=== PATIENT | female | born 1960 | race African-American/Black ===

== ENCOUNTER 2017-03-12 15:38 | Inpatient (IN) | payer MEDICARE, MEDICAID ==
[~2017-03-12] VITALS: Ht 162.6 cm; Wt 75.3 kg
[2017-03-12] MEDS ORDERED: SODIUM CHLORIDE 0.9% 1000ML BAG (SEPSIS BOLUS) IV ONE (16:45)
[2017-03-12 17:10] LABS: BASOPHILS % 0.3 % (0.0-2.0); EOSINOPHILS % 1.4 % (0.0-5.0); HEMATOCRIT. 34.2 % (36.0-48.0); LYMPHOCYTES % 26.8 % (20.0-50.0); MEAN CORPUSCULAR HEMOGLOBIN 27.8 pg (28.0-32.0); MEAN CORPUSCULAR VOLUME 86.2 fL (81.0-99.0); MEAN PLATELET VOLUME 8.5 fl (7.4-10.4); MONOCYTES % 5.9 % (2.0-8.0); NEUTROPHILS % 65.6 % (40.0-76.0); PLATELET 256 x1000/uL (130-400); RED BLOOD CELL COUNT 3.97 mill/uL (4.2-5.4); RED CELL DISTRIBUTION WIDTH 15.9 % (11.6-14.6)
[2017-03-12 17:13] LABS: CLARITY URINE TURBID (CLEAR); COLOR URINE YELLOW (YELLOW); GLUCOSE URINE TRACE (NEGATIVE); KETONES URINE NEGATIVE (NEGATIVE); LEUKOCYTE ESTERASE URINE 2+ (NEGATIVE); NITRITE URINE NEGATIVE (NEGATIVE); OCCULT BLOOD URINE 3+ (NEGATIVE); PH URINE 5.5 (4.5-8.0); PROTEIN URINE 4+ (NEGATIVE); SPECIFIC GRAVITY URINE 1.021 (1.005-1.030)
[2017-03-12 17:19] LABS: CHLORIDE 105 mEq/L (98-107)
[2017-03-12 17:21] LABS: CARBON DIOXIDE 29 mEq/L (21-32)
[2017-03-12] MEDS ORDERED: CEFTRIAXONE 2 G PREMIX 50 ML IV ONE (19:45)
[2017-03-12] MEDS ORDERED: VANCOMYCIN 1 G PREMIX 200 ML IV SCH (20:00)
[2017-03-12] MEDS ORDERED: ONDANSETRON HCL 4MG/2ML VIAL IV PRN (20:15)
[2017-03-12] MEDS ORDERED: VANCOMYCIN 1500MG in DEXTROSE 5% WATER 250ML IV NR (20:30)
[2017-03-12] MEDS ORDERED: CEFTRIAXONE 1 G PREMIX 50 ML IV NR (21:00)
[2017-03-12] MEDS: CLONIDINE 0.1MG TABLET PO PRN (21:13)
[2017-03-12] MEDS ORDERED: MORPHINE SULFATE 2 MG/ML CPJ (NOT FOR IM USE) IV ONE (21:30)
[2017-03-12] MEDS ORDERED: ONDANSETRON HCL 4MG/2ML VIAL IV ONE (21:30)
[2017-03-12 22:29] VITALS: BP 140/72
[2017-03-12 22:30] VITALS: BP 140/72
[2017-03-12 23:00] VITALS: BP 165/100
[2017-03-12] MEDS ORDERED: LEVVL SUBCUT (23:34)
[2017-03-12] MEDS ORDERED: ATOR10TA69 PO (23:36)
[2017-03-12] MEDS ORDERED: LEVE250T2 PO (23:38)
[2017-03-12] MEDS ORDERED: CLON0.1T PO (23:43)
[2017-03-12] MEDS ORDERED: DIPH25CA83 PO (23:45)
[2017-03-12] MEDS ORDERED: CLONIDINE 0.1MG TABLET PO SCH (23:45)
[2017-03-12] MEDS ORDERED: DIPHENHYDRAMINE 25MG CAPSULE PO PRN (23:45)
[2017-03-12] MEDS: BLOOD SUGAR DIAGNOSTIC STRIP TEST SCH (23:51)
[2017-03-13] VITALS (21 sets, daily range): BP systolic 121–188; BP diastolic 60–100
[2017-03-13] MEDS ORDERED: DEXTROSE 50% WATER 50ML SYRINGE IV PRN
[2017-03-13] MEDS ORDERED: CEFTRIAXONE 1 G PREMIX 50 ML IV SCH
[2017-03-13] MEDS ORDERED: GABA-531 PO (00:03)
[2017-03-13] MEDS ORDERED: VIGAMX EACHEYE (00:05)
[2017-03-13] MEDS ORDERED: HYDR453.3 TP (00:11)
[2017-03-13] MEDS ORDERED: HYDROCORTISONE 2.5% CREAM 20GM TOP PRN (00:15)
[2017-03-13] MEDS ORDERED: MEDICATION NOT ON FORMULARY EA (Moxifloxacin Hcl (Vigamox) 1 DROP) EACHEYE SCH (00:15)
[2017-03-13] MEDS ORDERED: METO25TA6 PO (00:21)
[2017-03-13] MEDS: ACETAMINOPHEN 325MG TABLET PO PRN ×2 (00:29→12:31)
[2017-03-13] MEDS: DIPHENHYDRAMINE 50MG CAPSULE PO PRN ×2 (00:30→12:31)
[2017-03-13] MEDS: INSULIN LISPRO 100 UNITS/ML SUBCUT SCH ×5 (00:45→21:46)
[2017-03-13] MEDS: METOPROLOL TARTRATE 25MG TABLET PO SCH ×2 (00:46→08:20)
[2017-03-13] MEDS: GABAPENTIN 300MG CAPSULE PO SCH ×4 (01:07→17:27)
[2017-03-13] MEDS ORDERED: DOCU-150 PO (03:57)
[2017-03-13] MEDS ORDERED: ESOM40CA PO (03:59)
[2017-03-13] MEDS ORDERED: VITAMIN C PO (04:02)
[2017-03-13] MEDS ORDERED: NEPVIT PO (04:03)
[2017-03-13] MEDS ORDERED: NIFE90TA2 PO (04:07)
[2017-03-13] MEDS ORDERED: LACT10SO6 PO (04:08)
[2017-03-13] MEDS ORDERED: GLIP5TAB12 PO (04:10)
[2017-03-13] MEDS ORDERED: DEXT15DR5 EACHEYE (04:13)
[2017-03-13] MEDS ORDERED: MEDICATION NOT ON FORMULARY EA (Dextran 70/Hypromellose (Artificial Tears Eye Drops) 1 D EACHEYE PRN (04:15)
[2017-03-13] MEDS ORDERED: BISACODYL 5MG TABLET PO PRN (04:15)
[2017-03-13] MEDS ORDERED: BISA-81 PO (04:16)
[2017-03-13] MEDS ORDERED: POLYVINYL ALCOHOL OPHTH DROPS 15ML EACHEYE PRN (04:30)
[2017-03-13] MEDS: BLOOD SUGAR DIAGNOSTIC STRIP TEST SCH ×4 (06:16→21:36)
[2017-03-13] MEDS: PANTOPRAZOLE 40MG DR TABLET PO SCH ×2 (06:18→17:27)
[2017-03-13] MEDS ORDERED: MEDICATION NOT ON FORMULARY EA (Esomeprazole Mag Trihydrate (Nexium) 40 MG) PO SCH (06:50)
[2017-03-13 07:55] LABS: BASOPHILS % 0.5 % (0.0-2.0); EOSINOPHILS % 0.9 % (0.0-5.0); HEMATOCRIT. 36.2 % (36.0-48.0); HEMOGLOBIN. 11.6 g/dL (12.0-16.0); LYMPHOCYTES % 24.2 % (20.0-50.0); MEAN CORPUSCULAR HEMOGLOBIN 27.5 pg (28.0-32.0); MEAN CORPUSCULAR VOLUME 86.2 fL (81.0-99.0); MONOCYTES % 5.6 % (2.0-8.0); NEUTROPHILS % 68.8 % (40.0-76.0); PLATELET 248 x1000/uL (130-400)
[2017-03-13 08:09] LABS: CARBON DIOXIDE 31 mEq/L (21-32); CHLORIDE 103 mEq/L (98-107)
[2017-03-13] MEDS: FOLIC ACID/VITAMIN B COMP W-C TABLET PO SCH (08:19)
[2017-03-13] MEDS: LEVETIRACETAM 250MG TABLET PO SCH ×2 (08:19→20:20)
[2017-03-13] MEDS: ASCORBIC ACID 500 MG TABLET PO SCH (08:19)
[2017-03-13] MEDS: LACTULOSE 20G/30ML UDC PO SCH (08:19)
[2017-03-13] MEDS: NIFEDIPINE XL 90MG TAB PO SCH (08:20)
[2017-03-13] MEDS: DOCUSATE SODIUM 250MG CAPSULE PO SCH ×2 (08:20→17:27)
[2017-03-13] MEDS: GLIPIZIDE 5MG TABLET PO SCH (08:20)
[2017-03-13] MEDS ORDERED: VITAMIN C 500 MG PO SCH (09:00)
[2017-03-13] MEDS ORDERED: LACTULOSE 20 GM PO SCH (09:00)
[2017-03-13] MEDS: ENOXAPARIN 40MG/0.4ML SYR SUBCUT SCH (10:12)
[2017-03-13] MEDS: INSULIN DETEMIR UD 100 UNITS/ML SYR SUBCUT SCH ×2 (10:13→21:49)
[2017-03-13] MEDS: CIPROFLOXACIN 0.3% OPHTH SOLN 2.5ML EACHEYE SCH ×4 (10:13→20:30)
[2017-03-13 11:52] LABS: *AMPHETAMINES SCREEN URINE NEGATIVE (NEGATIVE); *BARBITURATES SCREEN URINE NEGATIVE (NEGATIVE); *BENZODIAZEPINES SCREEN URINE NEGATIVE (NEGATIVE); *COCAINE SCREEN URINE NEGATIVE (NEGATIVE); CANNABINOID URINE SCREEN NEGATIVE (NEGATIVE); METHADONE URINE SCREEN NEGATIVE (NEGATIVE); OPIATES URINE SCREEN NEGATIVE (NEGATIVE); PHENCYCLIDINE URINE SCREEN NEGATIVE (NEGATIVE)
[2017-03-13] MEDS ORDERED: CEFTRIAXONE 1 G PREMIX 50 ML IV ONE (16:00)
[2017-03-13] MEDS: VANCOMYCIN 1 G PREMIX 200 ML IV SCH (20:17)
[2017-03-13] MEDS: ATORVASTATIN CALCIUM 10MG TABLET PO SCH (20:21)
[2017-03-14] VITALS (12 sets, daily range): BP systolic 125–171; BP diastolic 73–90
[2017-03-14] MEDS ORDERED: CEFTRIAXONE 1 G PREMIX 50 ML IV SCH
[2017-03-14] MEDS: CLONIDINE 0.1MG TABLET PO PRN (05:14)
[2017-03-14] MEDS: BLOOD SUGAR DIAGNOSTIC STRIP TEST SCH ×4 (05:45→21:37)
[2017-03-14] MEDS: PANTOPRAZOLE 40MG DR TABLET PO SCH (06:16)
[2017-03-14] MEDS: ACETAMINOPHEN 325MG TABLET PO PRN ×2 (07:27→21:52)
[2017-03-14] MEDS: INSULIN LISPRO 100 UNITS/ML SUBCUT SCH ×4 (07:28→21:00)
[2017-03-14] MEDS: GLIPIZIDE 5MG TABLET PO SCH (07:43)
[2017-03-14] MEDS: LACTULOSE 20G/30ML UDC PO SCH (08:58)
[2017-03-14] MEDS: ASCORBIC ACID 500 MG TABLET PO SCH (08:59)
[2017-03-14] MEDS: CIPROFLOXACIN 0.3% OPHTH SOLN 2.5ML EACHEYE SCH ×4 (09:08→21:50)
[2017-03-14] MEDS: NIFEDIPINE XL 90MG TAB PO SCH (09:09)
[2017-03-14] MEDS: DOCUSATE SODIUM 250MG CAPSULE PO SCH ×2 (09:09→16:09)
[2017-03-14] MEDS: LEVETIRACETAM 250MG TABLET PO SCH ×2 (09:09→21:50)
[2017-03-14] MEDS: GABAPENTIN 300MG CAPSULE PO SCH ×3 (09:09→16:18)
[2017-03-14] MEDS: FOLIC ACID/VITAMIN B COMP W-C TABLET PO SCH (09:09)
[2017-03-14] MEDS: METOPROLOL TARTRATE 25MG TABLET PO SCH ×2 (09:09→21:52)
[2017-03-14 10:20] LABS: BASOPHILS % 0.2 % (0.0-2.0); EOSINOPHILS % 1.5 % (0.0-5.0); HEMATOCRIT. 35.4 % (36.0-48.0); HEMOGLOBIN. 11.1 g/dL (12.0-16.0); LYMPHOCYTES % 28.1 % (20.0-50.0); MEAN CORPUSCULAR VOLUME 85.9 fL (81.0-99.0); MEAN PLATELET VOLUME 7.9 fl (7.4-10.4); MONOCYTES % 5.9 % (2.0-8.0); NEUTROPHILS % 64.3 % (40.0-76.0); PLATELET 243 x1000/uL (130-400); RED BLOOD CELL COUNT 4.12 mill/uL (4.2-5.4); RED CELL DISTRIBUTION WIDTH 16.1 % (11.6-14.6)
[2017-03-14] MEDS: ENOXAPARIN 40MG/0.4ML SYR SUBCUT SCH (10:34)
[2017-03-14] MEDS: INSULIN DETEMIR UD 100 UNITS/ML SYR SUBCUT SCH ×2 (10:35→21:47)
[2017-03-14] MEDS: DIPHENHYDRAMINE 50MG CAPSULE PO PRN ×2 (14:31→21:52)
[2017-03-14] MEDS: CEFEPIME 2,000 MG in DEXT 5% WATER 100 ML IV SCH (16:09)
[2017-03-14] MEDS: VANCOMYCIN 1 G PREMIX 200 ML IV SCH (21:50)
[2017-03-14] MEDS: ATORVASTATIN CALCIUM 10MG TABLET PO SCH (21:50)
[2017-03-15] VITALS (16 sets, daily range): BP systolic 124–200; BP diastolic 41–98
[2017-03-15] MEDS: ACETAMINOPHEN 325MG TABLET PO PRN ×2 (01:23→20:22)
[2017-03-15] MEDS: BLOOD SUGAR DIAGNOSTIC STRIP TEST SCH ×4 (05:44→21:00)
[2017-03-15 06:19] LABS: BASOPHILS % 0.1 % (0.0-2.0); EOSINOPHILS % 1.4 % (0.0-5.0); HEMOGLOBIN. 11.7 g/dL (12.0-16.0); LYMPHOCYTES % 23.9 % (20.0-50.0); MEAN CORPUSCULAR HEMOGLOBIN 27.8 pg (28.0-32.0); MEAN PLATELET VOLUME 8.1 fl (7.4-10.4); MONOCYTES % 4.8 % (2.0-8.0); NEUTROPHILS % 69.8 % (40.0-76.0); PLATELET 264 x1000/uL (130-400); RED BLOOD CELL COUNT 4.19 mill/uL (4.2-5.4); RED CELL DISTRIBUTION WIDTH 15.6 % (11.6-14.6)
[2017-03-15 06:59] LABS: PHOSPHORUS 3.7 mg/dL (2.5-4.9)
[2017-03-15] MEDS: LACTULOSE 20G/30ML UDC PO SCH (08:11)
[2017-03-15] MEDS: CIPROFLOXACIN 0.3% OPHTH SOLN 2.5ML EACHEYE SCH ×2 (08:11→12:00)
[2017-03-15] MEDS: ASCORBIC ACID 500 MG TABLET PO SCH (08:11)
[2017-03-15] MEDS: INSULIN LISPRO 100 UNITS/ML SUBCUT SCH ×4 (08:11→22:03)
[2017-03-15] MEDS: GABAPENTIN 300MG CAPSULE PO SCH ×3 (08:12→17:20)
[2017-03-15] MEDS: METOPROLOL TARTRATE 25MG TABLET PO SCH ×2 (08:12→20:22)
[2017-03-15] MEDS: DOCUSATE SODIUM 250MG CAPSULE PO SCH ×2 (08:12→17:20)
[2017-03-15] MEDS: FOLIC ACID/VITAMIN B COMP W-C TABLET PO SCH (08:12)
[2017-03-15] MEDS: LEVETIRACETAM 250MG TABLET PO SCH ×2 (08:12→20:22)
[2017-03-15] MEDS: FAMOTIDINE 20MG TABLET PO SCH (08:13)
[2017-03-15] MEDS: GLIPIZIDE 5MG TABLET PO SCH (08:13)
[2017-03-15] MEDS: NIFEDIPINE XL 90MG TAB PO SCH (08:13)
[2017-03-15] MEDS: INSULIN DETEMIR UD 100 UNITS/ML SYR SUBCUT SCH ×2 (09:19→22:04)
[2017-03-15] MEDS: DIPHENHYDRAMINE 50MG CAPSULE PO PRN (09:20)
[2017-03-15] MEDS: ENOXAPARIN 40MG/0.4ML SYR SUBCUT SCH (09:20)
[2017-03-15] MEDS: CLONIDINE 0.1MG TABLET PO PRN (12:05)
[2017-03-15] MEDS: HYDRALAZINE HCL 25MG TABLET PO SCH ×2 (14:49→20:21)
[2017-03-15] MEDS: CEFEPIME 2,000 MG in DEXT 5% WATER 100 ML IV SCH (15:31)
[2017-03-15] MEDS ORDERED: ACETAZOLAMIDE 250MG TABLET PO SCH (16:00)
[2017-03-15] MEDS: ATORVASTATIN CALCIUM 10MG TABLET PO SCH (20:22)
[2017-03-15] MEDS: TIMOLOL MALEATE 0.5% OPHTH DROPS 5ML EACHEYE SCH (20:24)
[2017-03-16] VITALS (16 sets, daily range): BP systolic 127–207; BP diastolic 51–101
[2017-03-16] MEDS: CLONIDINE 0.1MG TABLET PO PRN ×2 (03:10→17:16)
[2017-03-16] MEDS: ACETAMINOPHEN 325MG TABLET PO PRN ×3 (03:11→20:47)
[2017-03-16] MEDS: ACETAZOLAMIDE 250MG TABLET PO SCH ×4 (05:58→23:21)
[2017-03-16] MEDS: HYDRALAZINE HCL 25MG TABLET PO SCH ×3 (05:59→20:48)
[2017-03-16] MEDS: BLOOD SUGAR DIAGNOSTIC STRIP TEST SCH ×4 (06:03→20:26)
[2017-03-16 06:46] LABS: BASOPHILS % 0.5 % (0.0-2.0); EOSINOPHILS % 1.5 % (0.0-5.0); HEMATOCRIT. 36.7 % (36.0-48.0); HEMOGLOBIN. 11.7 g/dL (12.0-16.0); LYMPHOCYTES % 28.2 % (20.0-50.0); MEAN CORPUSCULAR HEMOGLOBIN 27.7 pg (28.0-32.0); MEAN CORPUSCULAR VOLUME 86.9 fL (81.0-99.0); MONOCYTES % 5.1 % (2.0-8.0); NEUTROPHILS % 64.7 % (40.0-76.0); RED BLOOD CELL COUNT 4.23 mill/uL (4.2-5.4); RED CELL DISTRIBUTION WIDTH 15.7 % (11.6-14.6)
[2017-03-16 06:50] LABS: PHOSPHORUS 3.9 mg/dL (2.5-4.9)
[2017-03-16] MEDS: GLIPIZIDE 5MG TABLET PO SCH (08:31)
[2017-03-16] MEDS: TIMOLOL MALEATE 0.5% OPHTH DROPS 5ML EACHEYE SCH ×2 (08:31→20:49)
[2017-03-16] MEDS: LACTULOSE 20G/30ML UDC PO SCH (08:32)
[2017-03-16] MEDS: DOCUSATE SODIUM 250MG CAPSULE PO SCH ×2 (08:32→17:14)
[2017-03-16] MEDS: LEVETIRACETAM 250MG TABLET PO SCH ×2 (08:33→20:48)
[2017-03-16] MEDS: METOPROLOL TARTRATE 25MG TABLET PO SCH ×2 (08:34→20:48)
[2017-03-16] MEDS: FOLIC ACID/VITAMIN B COMP W-C TABLET PO SCH (08:34)
[2017-03-16] MEDS: ZINC SULFATE 220 MG ( 50 ) CAPSULE PO SCH (08:35)
[2017-03-16] MEDS: GABAPENTIN 300MG CAPSULE PO SCH ×3 (08:35→17:14)
[2017-03-16] MEDS: FAMOTIDINE 20MG TABLET PO SCH (08:35)
[2017-03-16] MEDS: NIFEDIPINE XL 90MG TAB PO SCH (08:36)
[2017-03-16] MEDS: ASCORBIC ACID 500 MG TABLET PO SCH (08:36)
[2017-03-16] MEDS: INSULIN LISPRO 100 UNITS/ML SUBCUT SCH ×4 (09:05→20:50)
[2017-03-16] MEDS: INSULIN DETEMIR UD 100 UNITS/ML SYR SUBCUT SCH ×2 (09:06→20:50)
[2017-03-16] MEDS: ENOXAPARIN 40MG/0.4ML SYR SUBCUT SCH (09:10)
[2017-03-16 13:12] LABS: MEAN PLATELET VOLUME 9.4 fl (7.4-10.4); PLATELET 210 x1000/uL (130-400)
[2017-03-16] MEDS: LEVOFLOXACIN 250MG PREMIX 50 ML IV SCH (17:25)
[2017-03-16] MEDS: ATORVASTATIN CALCIUM 10MG TABLET PO SCH (20:48)
[2017-03-17] VITALS (12 sets, daily range): BP systolic 76–145; BP diastolic 54–77
[2017-03-17] MEDS: HYDRALAZINE HCL 25MG TABLET PO SCH ×3 (06:00→22:36)
[2017-03-17] MEDS: GLIPIZIDE 5MG TABLET PO SCH (06:05)
[2017-03-17] MEDS: ACETAZOLAMIDE 250MG TABLET PO SCH ×4 (06:05→23:50)
[2017-03-17] MEDS: DIPHENHYDRAMINE 50MG CAPSULE PO PRN (06:05)
[2017-03-17] MEDS: BLOOD SUGAR DIAGNOSTIC STRIP TEST SCH ×4 (06:12→21:20)
[2017-03-17 07:05] LABS: BASOPHILS % 0.2 % (0.0-2.0); EOSINOPHILS % 1.4 % (0.0-5.0); HEMATOCRIT. 35.7 % (36.0-48.0); HEMOGLOBIN. 11.4 g/dL (12.0-16.0); LYMPHOCYTES % 33.3 % (20.0-50.0); MEAN CORPUSCULAR HEMOGLOBIN 27.8 pg (28.0-32.0); MEAN CORPUSCULAR VOLUME 86.9 fL (81.0-99.0); MEAN PLATELET VOLUME 8.5 fl (7.4-10.4); MONOCYTES % 6.4 % (2.0-8.0); NEUTROPHILS % 58.7 % (40.0-76.0); PLATELET 271 x1000/uL (130-400); RED BLOOD CELL COUNT 4.11 mill/uL (4.2-5.4); RED CELL DISTRIBUTION WIDTH 15.8 % (11.6-14.6)
[2017-03-17] MEDS: METOPROLOL TARTRATE 25MG TABLET PO SCH ×2 (08:06→21:20)
[2017-03-17] MEDS: FAMOTIDINE 20MG TABLET PO SCH (08:07)
[2017-03-17] MEDS: LEVETIRACETAM 250MG TABLET PO SCH ×2 (08:07→21:19)
[2017-03-17] MEDS: GABAPENTIN 300MG CAPSULE PO SCH ×3 (08:07→16:38)
[2017-03-17] MEDS: ZINC SULFATE 220 MG ( 50 ) CAPSULE PO SCH (08:07)
[2017-03-17] MEDS: FOLIC ACID/VITAMIN B COMP W-C TABLET PO SCH (08:07)
[2017-03-17] MEDS: ASCORBIC ACID 500 MG TABLET PO SCH (08:07)
[2017-03-17] MEDS: DOCUSATE SODIUM 250MG CAPSULE PO SCH ×2 (08:07→16:38)
[2017-03-17] MEDS: NIFEDIPINE XL 90MG TAB PO SCH (08:07)
[2017-03-17] MEDS: LACTULOSE 20G/30ML UDC PO SCH (08:08)
[2017-03-17] MEDS: INSULIN LISPRO 100 UNITS/ML SUBCUT SCH ×4 (08:08→21:24)
[2017-03-17] MEDS: TIMOLOL MALEATE 0.5% OPHTH DROPS 5ML EACHEYE SCH ×2 (08:16→21:19)
[2017-03-17] MEDS: INSULIN DETEMIR UD 100 UNITS/ML SYR SUBCUT SCH ×2 (11:37→21:25)
[2017-03-17] MEDS: ENOXAPARIN 40MG/0.4ML SYR SUBCUT SCH (11:37)
[2017-03-17] MEDS: LEVOFLOXACIN 250MG PREMIX 50 ML IV SCH (16:38)
[2017-03-17] MEDS: ATORVASTATIN CALCIUM 10MG TABLET PO SCH (21:19)
[2017-03-18] VITALS (7 sets, daily range): BP systolic 121–155; BP diastolic 60–78
[2017-03-18] MEDS: ACETAZOLAMIDE 250MG TABLET PO SCH ×2 (06:22→13:42)
[2017-03-18] MEDS: HYDRALAZINE HCL 25MG TABLET PO SCH ×2 (06:22→13:15)
[2017-03-18] MEDS: ACETAMINOPHEN 325MG TABLET PO PRN (06:23)
[2017-03-18] MEDS: BLOOD SUGAR DIAGNOSTIC STRIP TEST SCH ×2 (06:29→11:37)
[2017-03-18 06:53] LABS: BASOPHILS % 0.3 % (0.0-2.0); EOSINOPHILS % 1.4 % (0.0-5.0); HEMATOCRIT. 36.6 % (36.0-48.0); HEMOGLOBIN. 11.7 g/dL (12.0-16.0); LYMPHOCYTES % 27.5 % (20.0-50.0); MEAN CORPUSCULAR VOLUME 87.7 fL (81.0-99.0); MEAN PLATELET VOLUME 8.4 fl (7.4-10.4); MONOCYTES % 5.8 % (2.0-8.0); PLATELET 284 x1000/uL (130-400); RED BLOOD CELL COUNT 4.18 mill/uL (4.2-5.4); RED CELL DISTRIBUTION WIDTH 16.3 % (11.6-14.6)
[2017-03-18] MEDS: INSULIN LISPRO 100 UNITS/ML SUBCUT SCH ×2 (08:40→13:15)
[2017-03-18] MEDS: FOLIC ACID/VITAMIN B COMP W-C TABLET PO SCH (08:45)
[2017-03-18] MEDS: GABAPENTIN 300MG CAPSULE PO SCH ×2 (08:45→13:15)
[2017-03-18] MEDS: LACTULOSE 20G/30ML UDC PO SCH (08:45)
[2017-03-18] MEDS: METOPROLOL TARTRATE 25MG TABLET PO SCH (08:46)
[2017-03-18] MEDS: FAMOTIDINE 20MG TABLET PO SCH (08:46)
[2017-03-18] MEDS: ZINC SULFATE 220 MG ( 50 ) CAPSULE PO SCH (08:46)
[2017-03-18] MEDS: ASCORBIC ACID 500 MG TABLET PO SCH (08:47)
[2017-03-18] MEDS: DOCUSATE SODIUM 250MG CAPSULE PO SCH (08:47)
[2017-03-18] MEDS: NIFEDIPINE XL 90MG TAB PO SCH (08:47)
[2017-03-18] MEDS: LEVETIRACETAM 250MG TABLET PO SCH (08:47)
[2017-03-18] MEDS: GLIPIZIDE 5MG TABLET PO SCH (08:49)
[2017-03-18] MEDS: INSULIN DETEMIR UD 100 UNITS/ML SYR SUBCUT SCH (08:49)
[2017-03-18] MEDS: TIMOLOL MALEATE 0.5% OPHTH DROPS 5ML EACHEYE SCH (08:50)
[2017-03-18] MEDS: ENOXAPARIN 40MG/0.4ML SYR SUBCUT SCH (11:15)
[2017-03-18] MEDS: LEVOFLOXACIN 250MG PREMIX 50 ML IV SCH (15:49)
== END 2017-03-18 16:21 | DRG 682 ==
LOC: ER 16:26 → 3WST 16:38 → EDBEDREQSVC 20:56 → ENRESERV 21:11 → EDBEDREQ 21:19 → 8WST 03-18 11:21
PROVIDERS: ADMIT Internal Medicine Nephrology; ATTEND Internal Medicine Nephrology
DX: N17.9 Acute kidney failure, unspecified (principal); E43 Unspecified severe protein-calorie malnutrition; I13.0 Hypertensive heart and chronic kidney disease with heart failure and stage 1 through stage 4 chronic kidney disease, or unspecified chronic kidney disease; R65.10 Systemic inflammatory response syndrome (SIRS) of non-infectious origin without acute organ dysfunction; I69.354 Hemiplegia and hemiparesis following cerebral infarction affecting left non-dominant side; I50.9 Heart failure, unspecified; F03.90 Unspecified dementia, unspecified severity, without behavioral disturbance, psychotic disturbance, mood disturbance, and anxiety; E11.22 Type 2 diabetes mellitus with diabetic chronic kidney disease; N39.0 Urinary tract infection, site not specified; H40.9 Unspecified glaucoma; B96.89 Other specified bacterial agents as the cause of diseases classified elsewhere; D64.9 Anemia, unspecified; N18.9 Chronic kidney disease, unspecified; G40.909 Epilepsy, unspecified, not intractable, without status epilepticus; H10.9 Unspecified conjunctivitis; Z16.21 Resistance to vancomycin; J45.909 Unspecified asthma, uncomplicated; K21.9 Gastro-esophageal reflux disease without esophagitis; H26.9 Unspecified cataract; Z79.4 Long term (current) use of insulin; Z79.899 Other long term (current) drug therapy; Z99.2 Dependence on renal dialysis; Z68.28 Body mass index [BMI] 28.0-28.9, adult; Z86.718 Personal history of other venous thrombosis and embolism; Z22.322 Carrier or suspected carrier of Methicillin resistant Staphylococcus aureus
CPT/HCPCS: 36415; 70450; 71010; 80048; 80053; 80202; 80305; 81001; 82962; 83605; 83735; 84100; 85025; 85610; 87040; 87077; 87086; 87186; 93005; 96374; 96375; 99285; A6261; C1893; J0692; J0696; J1650; J1815; J1956; J2270; J2405; J3370; J7030; J7060; Q0163

== ENCOUNTER 2017-11-28 23:28 | Inpatient (IN) | payer MEDICARE, MEDICAID ==
[~2017-11-28] VITALS: Ht 152.4 cm; Wt 72.6 kg
[~2017-11-28 23:28] MED LIST: ATOR10TA69 PO; BISA-81 PO; CLON0.1T PO; DEXT15DR5 EACHEYE; DIPH25CA83 PO; DOCU-150 PO; ESOM40CA PO; GABA-531 PO; GLIP5TAB12 PO; HYDR453.3 TP; LACT10SO6 PO; LEVE250T2 PO; LEVVL SUBCUT; METO25TA6 PO; NEPVIT PO; NIFE90TA2 PO; VIGAMX EACHEYE; VITAMIN C PO
[2017-11-28] MEDS ORDERED: SODIUM CHLORIDE 0.9% 1,000 ML IV ONE (23:57)
[2017-11-29 00:31] LABS: BASOPHILS % 0.4 % (0.0-2.0); EOSINOPHILS % 7.3 % (0.0-5.0); HEMATOCRIT. 32.6 % (36.0-48.0); HEMOGLOBIN. 10.1 g/dL (12.0-16.0); LYMPHOCYTES % 26.7 % (20.0-50.0); MEAN CORPUSCULAR HEMOGLOBIN 26.5 pg (28.0-32.0); MEAN CORPUSCULAR VOLUME 85.3 fL (81.0-99.0); MEAN PLATELET VOLUME 8.3 fl (7.4-10.4); MONOCYTES % 7.1 % (2.0-8.0); NEUTROPHILS % 58.5 % (40.0-76.0); PLATELET 313 x1000/uL (130-400); RED BLOOD CELL COUNT 3.82 mill/uL (4.2-5.4); RED CELL DISTRIBUTION WIDTH 17.9 % (11.6-14.6)
[2017-11-29 00:33] LABS: CHLORIDE 110 mEq/L (98-107)
[2017-11-29 00:36] LABS: INR 1.1; PROTHROMBIN TIME 10.9 sec (9.4-11.6)
[2017-11-29 00:41] LABS: ETHANOL BLOOD < 10 mg/dL
[2017-11-29 00:45] LABS: AMMONIA 18 uMol/L (<32)
[2017-11-29] MEDS ORDERED: CLONIDINE 0.1MG TABLET PO PRN (02:30)
[2017-11-29] MEDS ORDERED: ACETAMINOPHEN 325MG TABLET PO PRN (02:30)
[2017-11-29] MEDS ORDERED: ONDANSETRON HCL 4MG/2ML VIAL IV PRN (02:30)
[2017-11-29] MEDS ORDERED: HYDROCODONE/ACETAMINOPHEN 5/325MG TABLET PO PRN (02:30)
[2017-11-29] MEDS ORDERED: CEFTRIAXONE 1 G PREMIX 50 ML IV NR (04:00)
[2017-11-29 06:01] LABS: CLARITY URINE CLEAR (CLEAR); COLOR URINE YELLOW (YELLOW); KETONES URINE NEGATIVE (NEGATIVE); LEUKOCYTE ESTERASE URINE NEGATIVE (NEGATIVE); NITRITE URINE NEGATIVE (NEGATIVE); OCCULT BLOOD URINE NEGATIVE (NEGATIVE); PROTEIN URINE 3+ (NEGATIVE); SPECIFIC GRAVITY URINE 1.015 (1.005-1.030); UROBILINOGEN URINE 0.2 E.U./dL (0.2-1.0)
[2017-11-29 06:04] VITALS: BP 167/92
[2017-11-29 06:18] LABS: *AMPHETAMINES SCREEN URINE NEGATIVE (NEGATIVE)
[2017-11-29 06:19] LABS: *BARBITURATES SCREEN URINE NEGATIVE (NEGATIVE); *BENZODIAZEPINES SCREEN URINE NEGATIVE (NEGATIVE); *COCAINE SCREEN URINE NEGATIVE (NEGATIVE); METHADONE URINE SCREEN NEGATIVE (NEGATIVE); OPIATES URINE SCREEN NEGATIVE (NEGATIVE); PHENCYCLIDINE URINE SCREEN NEGATIVE (NEGATIVE)
[2017-11-29 06:20] LABS: CANNABINOID URINE SCREEN NEGATIVE (NEGATIVE)
[2017-11-29 06:35] VITALS: BP 141/60
[2017-11-29 08:00] VITALS: BP 140/60
[2017-11-29] MEDS: ENOXAPARIN 30MG/0.3ML SYR SUBCUT SCH (09:13)
[2017-11-29] MEDS: CEFTRIAXONE 1 G PREMIX 50 ML IV SCH (09:13)
[2017-11-29] MEDS ORDERED: DIPHENHYDRAMINE 50MG CAPSULE PO PRN (09:45)
[2017-11-29] MEDS ORDERED: POTASSIUM CHLORIDE 20MEQ/PACKET PO NR ×2 (09:45→11:00)
[2017-11-29] MEDS ORDERED: BISACODYL 5MG TABLET PO PRN (09:45)
[2017-11-29] MEDS ORDERED: PERMETHRIN 5% CREAM 60GM TOP NR (09:45)
[2017-11-29] MEDS ORDERED: DEXTROSE 50% WATER 50ML SYRINGE IV PRN (09:45)
[2017-11-29] MEDS ORDERED: ATORVASTATIN CALCIUM 10MG TABLET PO SCH (10:00)
[2017-11-29] MEDS ORDERED: LEVETIRACETAM 250MG TABLET PO SCH (10:00)
[2017-11-29] MEDS: FOLIC ACID/VITAMIN B COMP W-C TABLET PO SCH (10:57)
[2017-11-29] MEDS: DOCUSATE SODIUM 250MG CAPSULE PO SCH ×2 (10:57→18:08)
[2017-11-29] MEDS: GABAPENTIN 300MG CAPSULE PO SCH ×3 (10:58→18:06)
[2017-11-29] MEDS: NIFEDIPINE XL 90MG TAB PO SCH (10:58)
[2017-11-29] MEDS: METOPROLOL TARTRATE 25MG TABLET PO SCH (10:59)
[2017-11-29 12:00] VITALS: BP 130/70
[2017-11-29 12:11] LABS: PHOSPHORUS 4.8 mg/dL (2.5-4.9)
[2017-11-29] MEDS: BLOOD SUGAR DIAGNOSTIC STRIP TEST SCH ×3 (12:20→20:36)
[2017-11-29] MEDS: QUETIAPINE FUMARATE 25MG TABLET PO SCH ×3 (13:28→20:43)
[2017-11-29] MEDS: INSULIN LISPRO 100 UNITS/ML SUBCUT SCH ×3 (14:13→20:45)
[2017-11-29 14:55] LABS: UCG SCREEN NEGATIVE
[2017-11-29 15:06] LABS: FOLIC ACID (FOLATE) SERUM 19.2 ng/mL (>5.38)
[2017-11-29 15:58] VITALS: BP 130/80
[2017-11-29 17:58] LABS: AMMONIA 16 uMol/L (<32); ETHANOL BLOOD < 10 mg/dL
[2017-11-29 18:03] LABS: T4 FREE 0.98 ng/dL (0.76-1.46)
[2017-11-29] MEDS: CARBAMAZEPINE 100MG TABLET CHEW PO SCH (18:06)
[2017-11-29 20:00] VITALS: BP 105/56
[2017-11-29] MEDS: ATORVASTATIN CALCIUM 10MG TABLET PO SCH ×2 (20:36→20:43)
[2017-11-29] MEDS: INSULIN GLARGINE UD 100 UNITS/ML SYR SUBCUT SCH (22:29)
[2017-11-30] VITALS: BP 130/80
[2017-11-30 04:00] VITALS: BP 137/64
[2017-11-30] MEDS: BLOOD SUGAR DIAGNOSTIC STRIP TEST SCH ×4 (06:42→20:37)
[2017-11-30] MEDS: CEFTRIAXONE 1 G PREMIX 50 ML IV SCH (08:50)
[2017-11-30] MEDS: ENOXAPARIN 30MG/0.3ML SYR SUBCUT SCH (08:50)
[2017-11-30] MEDS: CARBAMAZEPINE 100MG TABLET CHEW PO SCH ×2 (08:51→17:02)
[2017-11-30] MEDS: QUETIAPINE FUMARATE 25MG TABLET PO SCH ×2 (08:51→20:37)
[2017-11-30] MEDS: FOLIC ACID/VITAMIN B COMP W-C TABLET PO SCH (08:51)
[2017-11-30] MEDS: GABAPENTIN 300MG CAPSULE PO SCH ×3 (08:51→17:02)
[2017-11-30] MEDS: DOCUSATE SODIUM 250MG CAPSULE PO SCH ×2 (08:51→17:02)
[2017-11-30] MEDS: METOPROLOL TARTRATE 25MG TABLET PO SCH (09:00)
[2017-11-30] MEDS: NIFEDIPINE XL 90MG TAB PO SCH (09:00)
[2017-11-30] MEDS: INSULIN LISPRO 100 UNITS/ML SUBCUT SCH ×4 (09:23→22:03)
[2017-11-30 10:50] VITALS: BP 106/41
[2017-11-30 13:26] LABS: BASOPHILS % 0.5 % (0.0-2.0); EOSINOPHILS % 8.3 % (0.0-5.0); HEMATOCRIT. 32.8 % (36.0-48.0); HEMOGLOBIN. 10.2 g/dL (12.0-16.0); LYMPHOCYTES % 32.4 % (20.0-50.0); MEAN CORPUSCULAR HEMOGLOBIN 26.4 pg (28.0-32.0); MEAN PLATELET VOLUME 8.8 fl (7.4-10.4); MONOCYTES % 6.9 % (2.0-8.0); NEUTROPHILS % 51.9 % (40.0-76.0); PLATELET 304 x1000/uL (130-400); RED BLOOD CELL COUNT 3.86 mill/uL (4.2-5.4); RED CELL DISTRIBUTION WIDTH 17.9 % (11.6-14.6)
[2017-11-30 13:39] LABS: PHOSPHORUS 4.4 mg/dL (2.5-4.9)
[2017-11-30 20:00] VITALS: BP 167/80
[2017-11-30] MEDS: ATORVASTATIN CALCIUM 10MG TABLET PO SCH (20:37)
[2017-11-30] MEDS: INSULIN GLARGINE UD 100 UNITS/ML SYR SUBCUT SCH (22:56)
[2017-12-01] VITALS: BP 162/67
[2017-12-01 04:00] VITALS: BP 198/80
[2017-12-01 06:13] LABS: BASOPHILS % 0.3 % (0.0-2.0); EOSINOPHILS % 9.3 % (0.0-5.0); HEMATOCRIT. 35.9 % (36.0-48.0); HEMOGLOBIN. 11.4 g/dL (12.0-16.0); LYMPHOCYTES % 35.7 % (20.0-50.0); MEAN CORPUSCULAR HEMOGLOBIN 26.6 pg (28.0-32.0); MEAN CORPUSCULAR VOLUME 84.1 fL (81.0-99.0); MEAN PLATELET VOLUME 8.5 fl (7.4-10.4); MONOCYTES % 5.2 % (2.0-8.0); NEUTROPHILS % 49.5 % (40.0-76.0); PLATELET 331 x1000/uL (130-400); RED BLOOD CELL COUNT 4.27 mill/uL (4.2-5.4); RED CELL DISTRIBUTION WIDTH 18.1 % (11.6-14.6)
[2017-12-01] MEDS: BLOOD SUGAR DIAGNOSTIC STRIP TEST SCH ×2 (07:29→13:08)
[2017-12-01] MEDS: INSULIN LISPRO 100 UNITS/ML SUBCUT SCH ×2 (07:50→13:41)
[2017-12-01] MEDS: CARBAMAZEPINE 100MG TABLET CHEW PO SCH ×2 (07:50→08:40)
[2017-12-01 08:00] VITALS: BP 140/80
[2017-12-01] MEDS: DOCUSATE SODIUM 250MG CAPSULE PO SCH (09:58)
[2017-12-01] MEDS: NIFEDIPINE XL 90MG TAB PO SCH (09:58)
[2017-12-01] MEDS: GABAPENTIN 300MG CAPSULE PO SCH ×2 (09:58→13:22)
[2017-12-01] MEDS: METOPROLOL TARTRATE 25MG TABLET PO SCH (09:58)
[2017-12-01] MEDS: FOLIC ACID/VITAMIN B COMP W-C TABLET PO SCH (09:58)
[2017-12-01] MEDS: QUETIAPINE FUMARATE 25MG TABLET PO SCH (09:59)
[2017-12-01] MEDS: ENOXAPARIN 30MG/0.3ML SYR SUBCUT SCH (09:59)
[2017-12-01] MEDS ORDERED: CEFTRIAXONE 1 G PREMIX 50 ML IV SCH (10:30)
[2017-12-01 12:00] VITALS: BP 140/70
[2017-12-01 16:05] VITALS: BP 130/70
[2017-12-01 18:39] VITALS: BP 130/70
== END 2017-12-01 19:00 | DRG 91 ==
LOC: ER 23:28 → 6EST 11-29 02:11 → EDBEDREQ 11-29 02:12 → ENRESERV 11-29 02:54
PROVIDERS: ADMIT Internal Medicine Nephrology; ATTEND Internal Medicine Nephrology
DX: G92 Toxic encephalopathy (principal); E43 Unspecified severe protein-calorie malnutrition; G91.9 Hydrocephalus, unspecified; E11.22 Type 2 diabetes mellitus with diabetic chronic kidney disease; E11.51 Type 2 diabetes mellitus with diabetic peripheral angiopathy without gangrene; E11.39 Type 2 diabetes mellitus with other diabetic ophthalmic complication; G93.89 Other specified disorders of brain; G40.909 Epilepsy, unspecified, not intractable, without status epilepticus; B86 Scabies; E78.00 Pure hypercholesterolemia, unspecified; E78.5 Hyperlipidemia, unspecified; N18.9 Chronic kidney disease, unspecified; K21.9 Gastro-esophageal reflux disease without esophagitis; H40.9 Unspecified glaucoma; I12.9 Hypertensive chronic kidney disease with stage 1 through stage 4 chronic kidney disease, or unspecified chronic kidney disease; R41.0 Disorientation, unspecified; Z79.899 Other long term (current) drug therapy; Z86.73 Personal history of transient ischemic attack (TIA), and cerebral infarction without residual deficits; Z79.4 Long term (current) use of insulin
CPT/HCPCS: 36415; 70450; 70551; 71045; 74176; 80048; 80053; 80305; 81003; 81025; 82140; 82607; 82746; 82962; 83036; 83690; 83735; 83880; 84100; 84439; 84443; 84481; 84484; 85025; 85610; 87086; 93005; 96360; 97163; 97166; 99285; G0482; J0696; J1650; J1815; J7030; J7040; Q0163

== ENCOUNTER 2018-03-12 19:11 | Inpatient (IN) | payer MEDICARE, MEDICAID ==
[~2018-03-12] VITALS: Ht 162.6 cm; Wt 57.6 kg
[~2018-03-12 19:11] MED LIST changes: -LEVE250T2 PO
[2018-03-12 21:30] LABS: CLARITY URINE CLEAR (CLEAR); COLOR URINE YELLOW (YELLOW); KETONES URINE NEGATIVE (NEGATIVE); LEUKOCYTE ESTERASE URINE NEGATIVE (NEGATIVE); NITRITE URINE NEGATIVE (NEGATIVE); OCCULT BLOOD URINE NEGATIVE (NEGATIVE); PROTEIN URINE 4+ (NEGATIVE); SPECIFIC GRAVITY URINE 1.021 (1.005-1.030); UROBILINOGEN URINE 0.2 E.U./dL (0.2-1.0)
[2018-03-12 21:49] LABS: BASOPHILS % 0.1 % (0.0-2.0); EOSINOPHILS % 6.8 % (0.0-5.0); HEMOGLOBIN. 11.2 g/dL (12.0-16.0); LYMPHOCYTES % 21.7 % (20.0-50.0); MEAN CORPUSCULAR HEMOGLOBIN 28.3 pg (28.0-32.0); MEAN CORPUSCULAR VOLUME 86.3 fL (81.0-99.0); MEAN PLATELET VOLUME 8.2 fl (7.4-10.4); MONOCYTES % 5.3 % (2.0-8.0); NEUTROPHILS % 66.1 % (40.0-76.0); PLATELET 279 x1000/uL (130-400); RED BLOOD CELL COUNT 3.94 mill/uL (4.2-5.4); RED CELL DISTRIBUTION WIDTH 16.9 % (11.6-14.6)
[2018-03-12 21:56] LABS: CHLORIDE 106 mEq/L (98-107)
[2018-03-12 21:58] LABS: PROTHROMBIN TIME 10.1 sec (9.1-11.1)
[2018-03-12] MEDS ORDERED: PANTOPRAZOLE SODIUM 40 MG/VIAL IV ONE (23:30)
[2018-03-13] MEDS ORDERED: CLONIDINE 0.1MG TABLET PO ONE (00:45)
[2018-03-13] MEDS ORDERED: METOPROLOL TARTRATE 25MG TABLET PO ONE (00:45)
[2018-03-13] MEDS ORDERED: AMLODIPINE 5MG TABLET PO ONE (00:45)
[2018-03-13] MEDS ORDERED: AMLO5TAB4 PO (04:29)
[2018-03-13] MEDS ORDERED: CARB100C4 PO (04:29)
[2018-03-13] MEDS ORDERED: TIMO5DRO27 EACHEYE (04:29)
[2018-03-13] MEDS ORDERED: LATA2.5D2 EACHEYE (04:29)
[2018-03-13 04:40] VITALS: BP 177/81
[2018-03-13] MEDS ORDERED: MEDICATION NOT ON FORMULARY EA (Amlodipine Besylate (Norvasc) 5 MG) PO SCH (05:45)
[2018-03-13] MEDS: BLOOD SUGAR DIAGNOSTIC STRIP TEST SCH ×4 (05:45→21:00)
[2018-03-13] MEDS ORDERED: ONDANSETRON HCL 4MG/2ML VIAL IV PRN (05:45)
[2018-03-13] MEDS ORDERED: DEXTROSE 50% WATER 50ML SYRINGE IV PRN (05:45)
[2018-03-13] MEDS: CLONIDINE 0.1MG TABLET PO PRN (05:55)
[2018-03-13] MEDS: ACETAMINOPHEN 650MG/20.3ML UDC PO PRN (05:56)
[2018-03-13] MEDS: INSULIN LISPRO 100 UNITS/ML SUBCUT SCH ×4 (06:43→21:58)
[2018-03-13 08:00] VITALS: BP 149/61
[2018-03-13] MEDS ORDERED: AMLODIPINE 5MG TABLET PO SCH (09:00)
[2018-03-13] MEDS ORDERED: NIFEDIPINE XL 90MG TAB PO SCH (09:00)
[2018-03-13] MEDS ORDERED: TIMOLOL EACHEYE SCH (09:00)
[2018-03-13] MEDS ORDERED: METOPROLOL TARTRATE 25MG TABLET PO SCH (09:00)
[2018-03-13] MEDS ORDERED: INSULIN DETEMIR 18 UNIT SUBCUT SCH (09:00)
[2018-03-13] MEDS ORDERED: NIFEDIPINE 90 MG PO SCH (09:00)
[2018-03-13] MEDS ORDERED: MEDICATION NOT ON FORMULARY EA (Docusate Sodium 250 MG) PO SCH (09:00)
[2018-03-13] MEDS ORDERED: CARBAMAZEPINE 100 MG PO SCH (09:00)
[2018-03-13] MEDS ORDERED: MEDICATION NOT ON FORMULARY EA (Metoprolol Tartrate 25 MG) PO SCH (09:00)
[2018-03-13] MEDS ORDERED: MEDICATION NOT ON FORMULARY EA (Gabapentin 300 MG) PO SCH (09:00)
[2018-03-13] MEDS: CARBAMAZEPINE 100MG TABLET CHEW PO SCH ×2 (09:39→21:59)
[2018-03-13] MEDS: DOCUSATE SODIUM 250MG CAPSULE PO SCH ×2 (09:40→18:00)
[2018-03-13] MEDS: PANTOPRAZOLE SODIUM 40 MG/VIAL IV SCH (09:41)
[2018-03-13] MEDS: LEVOFLOXACIN 250MG PREMIX 50 ML IV SCH (09:41)
[2018-03-13] MEDS: SODIUM CHLORIDE 0.45% 1,000 ML IV SCH (09:41)
[2018-03-13] MEDS: TIMOLOL MALEATE 0.5% OPHTH DROPS 5ML EACHEYE SCH ×2 (09:42→17:59)
[2018-03-13] MEDS: GABAPENTIN 300MG CAPSULE PO SCH ×4 (09:43→18:03)
[2018-03-13] MEDS ORDERED: INSULIN GLARGINE UD 100 UNITS/ML SYR SUBCUT SCH (10:00)
[2018-03-13 11:57] LABS: BASOPHILS % 0.5 % (0.0-2.0); EOSINOPHILS % 12.1 % (0.0-5.0); HEMATOCRIT. 33.3 % (36.0-48.0); HEMOGLOBIN. 10.9 g/dL (12.0-16.0); LYMPHOCYTES % 31.7 % (20.0-50.0); MEAN CORPUSCULAR HEMOGLOBIN 28.7 pg (28.0-32.0); MEAN CORPUSCULAR VOLUME 87.7 fL (81.0-99.0); MEAN PLATELET VOLUME 8.5 fl (7.4-10.4); MONOCYTES % 5.4 % (2.0-8.0); NEUTROPHILS % 50.3 % (40.0-76.0); PLATELET 252 x1000/uL (130-400); RED CELL DISTRIBUTION WIDTH 16.9 % (11.6-14.6)
[2018-03-13 12:00] VITALS: BP 169/63
[2018-03-13] MEDS: HYDRALAZINE HCL 25MG TABLET PO SCH ×3 (13:18→22:45)
[2018-03-13 16:00] VITALS: BP 134/69
[2018-03-13] MEDS: DIPHENHYDRAMINE 50MG CAPSULE PO PRN (19:01)
[2018-03-13 20:00] VITALS: BP 144/49
[2018-03-13] MEDS: ATORVASTATIN CALCIUM 10MG TABLET PO SCH (21:59)
[2018-03-13] MEDS: LATANOPROST 0.005% OPHTH DROPS 2.5ML EACHEYE SCH (22:01)
[2018-03-13] MEDS: METOPROLOL TARTRATE 25MG TABLET PO SCH (22:04)
[2018-03-13] MEDS: NIFEDIPINE XL 60MG TAB PO SCH (22:04)
[2018-03-14] VITALS: BP 169/74
[2018-03-14 00:41] LABS: HEMOGLOBIN 11.8 g/dL (12.0-16.0)
[2018-03-14 04:00] VITALS: BP 190/70
[2018-03-14] MEDS: HYDRALAZINE HCL 25MG TABLET PO SCH (05:56)
[2018-03-14] MEDS: SODIUM CHLORIDE 0.45% 1,000 ML IV SCH (06:02)
[2018-03-14] MEDS: BLOOD SUGAR DIAGNOSTIC STRIP TEST SCH ×4 (06:23→21:40)
[2018-03-14] MEDS: INSULIN LISPRO 100 UNITS/ML SUBCUT SCH ×4 (06:45→22:09)
[2018-03-14 08:00] VITALS: BP 101/52
[2018-03-14] MEDS: CARBAMAZEPINE 100MG TABLET CHEW PO SCH ×2 (08:37→21:25)
[2018-03-14] MEDS: PANTOPRAZOLE SODIUM 40 MG/VIAL IV SCH (08:37)
[2018-03-14] MEDS: LEVOFLOXACIN 250MG PREMIX 50 ML IV SCH (08:37)
[2018-03-14] MEDS: DIPHENHYDRAMINE 50MG CAPSULE PO PRN ×2 (08:42→21:25)
[2018-03-14] MEDS: NIFEDIPINE XL 60MG TAB PO SCH ×2 (08:42→21:25)
[2018-03-14] MEDS: DOCUSATE SODIUM 250MG CAPSULE PO SCH ×2 (08:42→17:12)
[2018-03-14] MEDS: TIMOLOL MALEATE 0.5% OPHTH DROPS 5ML EACHEYE SCH ×2 (08:43→17:16)
[2018-03-14] MEDS: METOPROLOL TARTRATE 25MG TABLET PO SCH ×2 (08:43→21:25)
[2018-03-14] MEDS ORDERED: LACTULOSE 20G/30ML UDC PO NR (09:15)
[2018-03-14 12:00] VITALS: BP 108/64
[2018-03-14] MEDS: GABAPENTIN 300MG CAPSULE PO SCH ×2 (12:26→17:12)
[2018-03-14] MEDS: LOSARTAN POTASSIUM 50 MG TABLET PO SCH ×2 (12:26→21:25)
[2018-03-14] MEDS: HYDRALAZINE HCL 50MG TABLET PO SCH ×2 (13:15→22:28)
[2018-03-14 16:00] VITALS: BP 162/91
[2018-03-14] MEDS: ACETAMINOPHEN 650MG/20.3ML UDC PO PRN (19:00)
[2018-03-14 20:00] VITALS: BP 149/61
[2018-03-14] MEDS: ATORVASTATIN CALCIUM 10MG TABLET PO SCH (21:25)
[2018-03-14] MEDS: CLOTRIMAZOLE/BETAMETHASONE 1/0.05% CREAM 15GM TOP SCH (21:26)
[2018-03-15] VITALS: BP 156/51
[2018-03-15] MEDS: LATANOPROST 0.005% OPHTH DROPS 2.5ML EACHEYE SCH ×2 (00:17→08:51)
[2018-03-15] MEDS: SODIUM CHLORIDE 0.45% 1,000 ML IV SCH ×2 (00:19→20:00)
[2018-03-15 04:00] VITALS: BP 161/66
[2018-03-15] MEDS: HYDRALAZINE HCL 50MG TABLET PO SCH ×3 (05:46→22:06)
[2018-03-15] MEDS: BLOOD SUGAR DIAGNOSTIC STRIP TEST SCH ×4 (06:27→21:00)
[2018-03-15] MEDS: INSULIN LISPRO 100 UNITS/ML SUBCUT SCH ×4 (06:45→22:23)
[2018-03-15 08:00] VITALS: BP 165/75
[2018-03-15] MEDS: TIMOLOL MALEATE 0.5% OPHTH DROPS 5ML EACHEYE SCH ×2 (08:51→17:51)
[2018-03-15] MEDS: CLOTRIMAZOLE/BETAMETHASONE 1/0.05% CREAM 15GM TOP SCH ×2 (08:51→22:01)
[2018-03-15] MEDS: LEVOFLOXACIN 250MG PREMIX 50 ML IV SCH (08:52)
[2018-03-15] MEDS: PANTOPRAZOLE SODIUM 40 MG/VIAL IV SCH (08:53)
[2018-03-15] MEDS: GABAPENTIN 300MG CAPSULE PO SCH ×3 (08:53→17:51)
[2018-03-15] MEDS: DOCUSATE SODIUM 250MG CAPSULE PO SCH ×2 (08:53→17:51)
[2018-03-15] MEDS: LOSARTAN POTASSIUM 50 MG TABLET PO SCH ×2 (09:03→22:00)
[2018-03-15] MEDS: METOPROLOL TARTRATE 25MG TABLET PO SCH ×2 (09:03→22:00)
[2018-03-15] MEDS: NIFEDIPINE XL 60MG TAB PO SCH ×2 (09:03→22:00)
[2018-03-15] MEDS: CARBAMAZEPINE 100MG TABLET CHEW PO SCH ×2 (10:31→22:06)
[2018-03-15 12:00] VITALS: BP 167/74
[2018-03-15] MEDS: CLONIDINE 0.1MG TABLET PO PRN (13:57)
[2018-03-15 16:00] VITALS: BP 156/68
[2018-03-15 20:00] VITALS: BP 159/69
[2018-03-15] MEDS: ATORVASTATIN CALCIUM 10MG TABLET PO SCH (22:00)
[2018-03-16] VITALS (8 sets, daily range): BP systolic 96–159; BP diastolic 49–72
[2018-03-16] MEDS: HYDRALAZINE HCL 50MG TABLET PO SCH ×3 (05:12→20:43)
[2018-03-16] MEDS: INSULIN LISPRO 100 UNITS/ML SUBCUT SCH ×4 (06:15→21:15)
[2018-03-16] MEDS: BLOOD SUGAR DIAGNOSTIC STRIP TEST SCH ×4 (06:15→21:15)
[2018-03-16] MEDS: LOSARTAN POTASSIUM 50 MG TABLET PO SCH ×2 (08:53→20:44)
[2018-03-16] MEDS: PANTOPRAZOLE SODIUM 40 MG/VIAL IV SCH (08:53)
[2018-03-16] MEDS: GABAPENTIN 300MG CAPSULE PO SCH ×3 (08:53→18:01)
[2018-03-16] MEDS: NIFEDIPINE XL 60MG TAB PO SCH ×2 (08:54→20:43)
[2018-03-16] MEDS: DOCUSATE SODIUM 250MG CAPSULE PO SCH ×2 (08:54→18:01)
[2018-03-16] MEDS: CARBAMAZEPINE 100MG TABLET CHEW PO SCH ×2 (08:54→20:59)
[2018-03-16] MEDS: TIMOLOL MALEATE 0.5% OPHTH DROPS 5ML EACHEYE SCH ×2 (08:54→17:00)
[2018-03-16] MEDS: METOPROLOL TARTRATE 25MG TABLET PO SCH ×2 (08:54→20:44)
[2018-03-16] MEDS: LEVOFLOXACIN 250MG PREMIX 50 ML IV SCH (09:30)
[2018-03-16] MEDS: CLOTRIMAZOLE/BETAMETHASONE 1/0.05% CREAM 15GM TOP SCH ×2 (11:35→20:45)
[2018-03-16] MEDS ORDERED: LEVOFLOXACIN 250MG TABLET PO SCH (14:00)
[2018-03-16] MEDS: SODIUM CHLORIDE 0.45% 1,000 ML IV SCH (16:00)
[2018-03-16] MEDS: ATORVASTATIN CALCIUM 10MG TABLET PO SCH (20:44)
[2018-03-16] MEDS: LATANOPROST 0.005% OPHTH DROPS 2.5ML EACHEYE SCH (20:45)
[2018-03-17] VITALS: BP 132/58
[2018-03-17] MEDS: ACETAMINOPHEN 650MG/20.3ML UDC PO PRN (00:28)
== END 2018-03-17 02:30 | DRG 682 ==
LOC: ER 19:11 → 8WST 03-13 00:41 → ENRESERV 03-13 03:17
PROVIDERS: ADMIT Internal Medicine Nephrology; ATTEND Internal Medicine Nephrology
DX: I13.11 Hypertensive heart and chronic kidney disease without heart failure, with stage 5 chronic kidney disease, or end stage renal disease (principal); N18.6 End stage renal disease; N39.0 Urinary tract infection, site not specified; N17.9 Acute kidney failure, unspecified; E46 Unspecified protein-calorie malnutrition; I69.354 Hemiplegia and hemiparesis following cerebral infarction affecting left non-dominant side; K21.9 Gastro-esophageal reflux disease without esophagitis; G40.909 Epilepsy, unspecified, not intractable, without status epilepticus; D72.829 Elevated white blood cell count, unspecified; E11.22 Type 2 diabetes mellitus with diabetic chronic kidney disease; K59.09 Other constipation; E78.00 Pure hypercholesterolemia, unspecified; E78.5 Hyperlipidemia, unspecified; H40.9 Unspecified glaucoma; Z79.4 Long term (current) use of insulin; Z91.19 Patient's noncompliance with other medical treatment and regimen; Z99.2 Dependence on renal dialysis; Z79.899 Other long term (current) drug therapy; Z68.21 Body mass index [BMI] 21.0-21.9, adult
CPT/HCPCS: 36415; 80048; 80053; 80061; 81003; 82962; 83036; 83540; 83550; 83605; 85014; 85018; 85025; 85610; 87040; 93005; 93306; 93970; 96374; 99285; A6261; C1893; C9113; J1815; J1956; Q0163

== ENCOUNTER 2018-08-26 14:35 | Inpatient (IN) | payer MEDICARE, MEDICAID ==
[~2018-08-26] VITALS: Ht 165.1 cm; Wt 69.9 kg
[~2018-08-26 14:35] MED LIST changes: +AMLO5TAB4 PO; +CARB100C4 PO; +LATA2.5D2 EACHEYE; +TIMO5DRO27 EACHEYE
[2018-08-26] MEDS ORDERED: SODIUM CHLORIDE 0.9% 1,000 ML IV ONE (18:46)
[2018-08-26 19:48] LABS: BASOPHILS % 0.5 % (0.0-2.0); EOSINOPHILS % 0.6 % (0.0-5.0); HEMATOCRIT. 34.8 % (36.0-48.0); HEMOGLOBIN. 11.2 g/dL (12.0-16.0); LYMPHOCYTES % 36.6 % (20.0-50.0); MEAN CORPUSCULAR HEMOGLOBIN 28.7 pg (28.0-32.0); MEAN CORPUSCULAR VOLUME 89.2 fL (81.0-99.0); MEAN PLATELET VOLUME 8.6 fl (7.4-10.4); MONOCYTES % 7.3 % (2.0-8.0); PLATELET 179 x1000/uL (130-400); RED CELL DISTRIBUTION WIDTH 16.1 % (11.6-14.6)
[2018-08-26] MEDS ORDERED: CEFTRIAXONE 1 G PREMIX 50 ML IV ONE (20:00)
[2018-08-26 20:26] LABS: CLARITY URINE CLEAR (CLEAR); COLOR URINE YELLOW (YELLOW); KETONES URINE NEGATIVE (NEGATIVE); LEUKOCYTE ESTERASE URINE 2+ (NEGATIVE); NITRITE URINE POSITIVE (NEGATIVE); OCCULT BLOOD URINE NEGATIVE (NEGATIVE); PROTEIN URINE 4+ (NEGATIVE); SPECIFIC GRAVITY URINE 1.019 (1.005-1.030); UROBILINOGEN URINE 0.2 E.U./dL (0.2-1.0)
[2018-08-26] MEDS ORDERED: HYDRALAZINE 20MG/ML VIAL IV ONE (21:00)
[2018-08-26] MEDS ORDERED: ONDANSETRON HCL 4MG/2ML INJ IV PRN (22:15)
[2018-08-26] MEDS ORDERED: NA PHOS,M-B/NA PHOS,DI-BA ENEMA 118ML PR PRN (22:15)
[2018-08-26] MEDS ORDERED: MAGNESIUM/ALUMINUM HYDROXIDE/SIMETHICONE 30ML UDC PO PRN (22:15)
[2018-08-26] MEDS ORDERED: DOCUSATE SODIUM 100MG CAPSULE PO PRN (22:15)
[2018-08-26] MEDS ORDERED: DIPHENHYDRAMINE 50MG/ML VIAL IV PRN (22:15)
[2018-08-26] MEDS ORDERED: ENOXAPARIN 30MG/0.3ML SYR SUBCUT NR (22:30)
[2018-08-26] MEDS: CLONIDINE 0.1MG TABLET PO PRN (22:37)
[2018-08-27] MEDS ORDERED: AMLODIPINE 5MG TABLET PO NR (02:15)
[2018-08-27] MEDS ORDERED: LOSARTAN POTASSIUM 25 MG TABLET PO NR (03:45)
[2018-08-27] MEDS: CLONIDINE 0.1MG TABLET PO PRN ×2 (04:54→13:31)
[2018-08-27 05:36] LABS: BASOPHILS % 0.4 % (0.0-2.0); EOSINOPHILS % 0.2 % (0.0-5.0); HEMATOCRIT. 34.5 % (36.0-48.0); HEMOGLOBIN. 11.1 g/dL (12.0-16.0); MEAN CORPUSCULAR HEMOGLOBIN 28.7 pg (28.0-32.0); MEAN CORPUSCULAR VOLUME 89.2 fL (81.0-99.0); MEAN PLATELET VOLUME 9.6 fl (7.4-10.4); MONOCYTES % 4.9 % (2.0-8.0); NEUTROPHILS % 67.5 % (40.0-76.0); PLATELET 204 x1000/uL (130-400); RED BLOOD CELL COUNT 3.87 mill/uL (4.2-5.4)
[2018-08-27 05:52] LABS: PHOSPHORUS 4.7 mg/dL (2.5-4.9)
[2018-08-27] MEDS ORDERED: HYDRALAZINE HCL 25MG TABLET PO SCH (06:00)
[2018-08-27] MEDS: METOPROLOL TARTRATE 25MG TABLET PO SCH ×4 (06:11→21:00)
[2018-08-27] MEDS ORDERED: LOSARTAN POTASSIUM 25 MG TABLET PO SCH (08:00)
[2018-08-27] MEDS ORDERED: LEVOFLOXACIN 500MG PREMIX 100 ML IV NR (08:02)
[2018-08-27] MEDS ORDERED: ONDANSETRON HCL 4MG/2ML INJ IV PRN (08:45)
[2018-08-27] MEDS ORDERED: AMLODIPINE 10MG TABLET PO SCH (09:00)
[2018-08-27] MEDS ORDERED: AMLODIPINE 5MG TABLET PO SCH (09:00)
[2018-08-27] MEDS ORDERED: LEVOFLOXACIN 500MG PREMIX 100 ML IV SCH (09:00)
[2018-08-27] MEDS ORDERED: CARBAMAZEPINE 100MG TABLET CHEW PO NR (09:15)
[2018-08-27] MEDS ORDERED: INSULIN GLARGINE UD 100 UNITS/ML SYR SUBCUT NR (10:00)
[2018-08-27] MEDS: TIMOLOL MALEATE 0.5% OPHTH DROPS 5ML EACHEYE SCH ×2 (10:21→22:24)
[2018-08-27] MEDS: HYDRALAZINE HCL 50MG TABLET PO SCH ×2 (16:04→22:24)
[2018-08-27] MEDS: GABAPENTIN 300MG CAPSULE PO SCH ×2 (16:04→22:24)
[2018-08-27] MEDS: LOSARTAN POTASSIUM 25 MG TABLET PO SCH (16:04)
[2018-08-27] MEDS ORDERED: VIT500LI PO (16:16)
[2018-08-27 16:22] VITALS: BP 238/92
[2018-08-27 16:26] VITALS: BP 238/92
[2018-08-27] MEDS ORDERED: DEXTROSE 50% WATER 50ML SYRINGE IV PRN (17:30)
[2018-08-27] MEDS: CARBAMAZEPINE 100MG TABLET CHEW PO SCH (17:41)
[2018-08-27] MEDS: INSULIN LISPRO 100 UNITS/ML SUBCUT SCH ×2 (17:42→21:00)
[2018-08-27 17:50] VITALS: BP 162/50
[2018-08-27 20:00] VITALS: BP 195/88
[2018-08-27] MEDS: NIFEDIPINE XL 60MG TAB PO SCH (20:17)
[2018-08-27] MEDS: ATORVASTATIN CALCIUM 10MG TABLET PO SCH (20:17)
[2018-08-27] MEDS: ENOXAPARIN 40MG/0.4ML SYR SUBCUT SCH (20:18)
[2018-08-27] MEDS: HYDRALAZINE 20MG/ML VIAL IV PRN (20:18)
[2018-08-27] MEDS: BLOOD SUGAR DIAGNOSTIC STRIP TEST SCH (21:00)
[2018-08-27] MEDS: SODIUM CHLORIDE 0.45% 1,000 ML IV SCH (21:22)
[2018-08-27] MEDS ORDERED: INSULIN GLARGINE UD 100 UNITS/ML SYR SUBCUT SCH (22:00)
[2018-08-27] MEDS: INSULIN GLARGINE UD 100 UNITS/ML SYR SUBCUT SCH (23:40)
[2018-08-28] VITALS (8 sets, daily range): BP systolic 142–196; BP diastolic 52–79
[2018-08-28] MEDS: HYDRALAZINE HCL 50MG TABLET PO SCH (05:13)
[2018-08-28] MEDS: GABAPENTIN 300MG CAPSULE PO SCH ×3 (05:13→21:07)
[2018-08-28] MEDS: GLIPIZIDE 5MG TABLET PO SCH (06:45)
[2018-08-28] MEDS: NIFEDIPINE XL 60MG TAB PO SCH ×2 (08:42→21:07)
[2018-08-28] MEDS: CARBAMAZEPINE 100MG TABLET CHEW PO SCH ×2 (08:42→16:19)
[2018-08-28] MEDS: TIMOLOL MALEATE 0.5% OPHTH DROPS 5ML EACHEYE SCH ×2 (08:43→21:08)
[2018-08-28] MEDS: LOSARTAN POTASSIUM 25 MG TABLET PO SCH ×2 (08:43→16:19)
[2018-08-28] MEDS: METOPROLOL TARTRATE 25MG TABLET PO SCH ×3 (08:44→21:07)
[2018-08-28] MEDS ORDERED: LEVOFLOXACIN 250MG PREMIX 50 ML IV SCH (09:00)
[2018-08-28 09:58] LABS: BASOPHILS % 0.2 % (0.0-2.0); EOSINOPHILS % 0.4 % (0.0-5.0); HEMOGLOBIN. 11.6 g/dL (12.0-16.0); LYMPHOCYTES % 33.3 % (20.0-50.0); MEAN CORPUSCULAR HEMOGLOBIN 28.5 pg (28.0-32.0); MEAN CORPUSCULAR VOLUME 88.4 fL (81.0-99.0); MEAN PLATELET VOLUME 9.2 fl (7.4-10.4); MONOCYTES % 5.5 % (2.0-8.0); NEUTROPHILS % 60.6 % (40.0-76.0); PLATELET 225 x1000/uL (130-400); RED BLOOD CELL COUNT 4.07 mill/uL (4.2-5.4); RED CELL DISTRIBUTION WIDTH 15.7 % (11.6-14.6)
[2018-08-28 10:14] LABS: CHLORIDE 106 mEq/L (98-107)
[2018-08-28 10:34] LABS: CREATINE KINASE 71 IU/L (26-192); CREATINE KINASE MB FRACTION 1.7 ng/mL (0.5-3.6); HDL CHOLESTEROL 70 mg/dL (40-59); LDL CHOLESTEROL 125 mg/dL (5-100)
[2018-08-28] MEDS: INSULIN LISPRO 100 UNITS/ML SUBCUT SCH ×3 (12:40→21:00)
[2018-08-28] MEDS: BLOOD SUGAR DIAGNOSTIC STRIP TEST SCH ×3 (12:51→20:59)
[2018-08-28] MEDS ORDERED: VANCOMYCIN 1500MG in DEXTROSE 5% WATER 250ML IV NR (13:00)
[2018-08-28] MEDS: INSULIN GLARGINE UD 100 UNITS/ML SYR SUBCUT SCH ×2 (13:07→21:52)
[2018-08-28] MEDS: HYDRALAZINE HCL 100MG TABLET PO SCH ×2 (13:10→21:08)
[2018-08-28] MEDS: IPRATROPIUM/ALBUTEROL 0.5-3(2.5)MG/3ML NEB INH SCH ×2 (14:07→21:27)
[2018-08-28] MEDS: HYDRALAZINE 20MG/ML VIAL IV PRN (16:17)
[2018-08-28] MEDS: ACETAMINOPHEN 325MG TABLET PO PRN (16:20)
[2018-08-28] MEDS: SODIUM CHLORIDE 0.45% 1,000 ML IV SCH (17:52)
[2018-08-28] MEDS: ATORVASTATIN CALCIUM 10MG TABLET PO SCH (21:08)
[2018-08-28] MEDS: ENOXAPARIN 40MG/0.4ML SYR SUBCUT SCH (21:09)
[2018-08-29] VITALS (10 sets, daily range): BP systolic 135–193; BP diastolic 58–96
[2018-08-29] MEDS: IPRATROPIUM/ALBUTEROL 0.5-3(2.5)MG/3ML NEB INH SCH ×3 (01:50→12:30)
[2018-08-29] MEDS: INSULIN LISPRO 100 UNITS/ML SUBCUT SCH ×4 (06:18→17:12)
[2018-08-29] MEDS: BLOOD SUGAR DIAGNOSTIC STRIP TEST SCH ×3 (06:19→17:11)
[2018-08-29] MEDS: HYDRALAZINE HCL 100MG TABLET PO SCH ×2 (06:39→13:03)
[2018-08-29] MEDS: GABAPENTIN 300MG CAPSULE PO SCH ×2 (06:39→13:03)
[2018-08-29] MEDS: GLIPIZIDE 5MG TABLET PO SCH (06:39)
[2018-08-29 06:42] LABS: BASOPHILS % 0.1 % (0.0-2.0); EOSINOPHILS % 0.6 % (0.0-5.0); HEMATOCRIT. 35.8 % (36.0-48.0); HEMOGLOBIN. 11.8 g/dL (12.0-16.0); LYMPHOCYTES % 27.6 % (20.0-50.0); MEAN CORPUSCULAR HEMOGLOBIN 28.8 pg (28.0-32.0); MEAN CORPUSCULAR VOLUME 87.6 fL (81.0-99.0); MEAN PLATELET VOLUME 8.8 fl (7.4-10.4); MONOCYTES % 8.5 % (2.0-8.0); NEUTROPHILS % 63.2 % (40.0-76.0); PLATELET 225 x1000/uL (130-400); RED BLOOD CELL COUNT 4.09 mill/uL (4.2-5.4); RED CELL DISTRIBUTION WIDTH 15.9 % (11.6-14.6)
[2018-08-29 06:45] LABS: CHLORIDE 107 mEq/L (98-107)
[2018-08-29] MEDS ORDERED: LACTULOSE 20G/30ML UDC PO NR (08:30)
[2018-08-29] MEDS: CARBAMAZEPINE 100MG TABLET CHEW PO SCH ×2 (08:49→17:37)
[2018-08-29] MEDS: LOSARTAN POTASSIUM 25 MG TABLET PO SCH ×2 (08:49→17:36)
[2018-08-29] MEDS: TIMOLOL MALEATE 0.5% OPHTH DROPS 5ML EACHEYE SCH (08:50)
[2018-08-29] MEDS: METOPROLOL TARTRATE 25MG TABLET PO SCH (08:50)
[2018-08-29] MEDS: NIFEDIPINE XL 60MG TAB PO SCH (08:50)
[2018-08-29] MEDS: VANCOMYCIN 500 MG PREMIX 100 ML IV SCH ×2 (09:00→10:06)
[2018-08-29] MEDS: CLONIDINE 0.1MG TABLET PO SCH ×3 (09:45→17:37)
[2018-08-29] MEDS: SODIUM CHLORIDE 0.45% 1,000 ML IV SCH (10:08)
[2018-08-29] MEDS: INSULIN GLARGINE UD 100 UNITS/ML SYR SUBCUT SCH (10:10)
[2018-08-29] MEDS: HYDRALAZINE 20MG/ML VIAL IV PRN (13:03)
[2018-08-29] MEDS: CLONIDINE 0.1MG TABLET PO PRN ×2 (14:27→19:25)
[2018-08-29] MEDS ORDERED: VANCOMYCIN 750 MG PREMIX 150 ML IV SCH (19:00)
[2018-08-29] MEDS: ACETAMINOPHEN 325MG TABLET PO PRN (20:37)
== END 2018-08-29 20:45 | DRG 682 ==
LOC: ER 14:35 → 8WST 21:59 → ENRESERV 08-27 13:54 → 8WST 08-27 15:43
PROVIDERS: ADMIT Internal Medicine Nephrology; ATTEND Internal Medicine Nephrology
DX: N17.9 Acute kidney failure, unspecified (principal); E43 Unspecified severe protein-calorie malnutrition; N39.0 Urinary tract infection, site not specified; I16.0 Hypertensive urgency; E83.51 Hypocalcemia; E11.22 Type 2 diabetes mellitus with diabetic chronic kidney disease; D64.9 Anemia, unspecified; I12.9 Hypertensive chronic kidney disease with stage 1 through stage 4 chronic kidney disease, or unspecified chronic kidney disease; N18.9 Chronic kidney disease, unspecified; E11.65 Type 2 diabetes mellitus with hyperglycemia; E78.00 Pure hypercholesterolemia, unspecified; E86.0 Dehydration; B95.62 Methicillin resistant Staphylococcus aureus infection as the cause of diseases classified elsewhere; G40.909 Epilepsy, unspecified, not intractable, without status epilepticus; H40.9 Unspecified glaucoma; H54.8 Legal blindness, as defined in USA; I27.20 Pulmonary hypertension, unspecified; K21.9 Gastro-esophageal reflux disease without esophagitis; Z79.4 Long term (current) use of insulin; Z68.25 Body mass index [BMI] 25.0-25.9, adult
CPT/HCPCS: 36415; 71045; 80048; 80061; 82550; 82553; 82962; 83036; 83605; 83735; 84100; 84443; 84484; 85379; 87077; 93005; 93306; 93970; 94640; 96365; 96372; 96375; 97163; 97166; 99285; A6261; C1893; J0360; J0696; J1650; J1815; J1956; J3370; J7030; J7060; J7620

== ENCOUNTER 2019-04-28 01:14 | Inpatient (IN) | payer MEDICARE, MEDICAID ==
[~2019-04-28] VITALS: Ht 165.1 cm; Wt 84.8 kg
[~2019-04-28 01:14] MED LIST changes: +VIT500LI PO; -VITAMIN C PO
[2019-04-28] MEDS ORDERED: SODIUM CHLORIDE 0.9% 1,000 ML IV ONE (02:34)
[2019-04-28] MEDS ORDERED: ONDANSETRON HCL 4MG/2ML INJ IV STA (02:34)
[2019-04-28 03:11] LABS: BASOPHILS % 0.1 % (0.0-2.0); HEMATOCRIT. 24.5 % (36.0-48.0); HEMOGLOBIN. 7.8 g/dL (12.0-16.0); LYMPHOCYTES % 23.1 % (20.0-50.0); MEAN CORPUSCULAR VOLUME 88.2 fL (81.0-99.0); NEUTROPHILS % 69.8 % (40.0-76.0); PLATELET 244 x1000/uL (130-400); RED BLOOD CELL COUNT 2.78 mill/uL (4.2-5.4); RED CELL DISTRIBUTION WIDTH 16.2 % (11.6-14.6)
[2019-04-28 03:22] LABS: PROTHROMBIN TIME 9.9 sec (9.6-11.0)
[2019-04-28 03:23] LABS: CHLORIDE 109 mEq/L (98-107)
[2019-04-28] MEDS ORDERED: CLONIDINE 0.1MG TABLET PO PRN (05:00)
[2019-04-28] MEDS ORDERED: ONDANSETRON HCL 4MG/2ML INJ IV PRN (05:00)
[2019-04-28] MEDS ORDERED: DOCUSATE SODIUM 100MG CAPSULE PO PRN (05:00)
[2019-04-28] MEDS ORDERED: SODIUM POLYSTYRENE SULFONATE 15 G/60 ML BOT PO ONE (05:00)
[2019-04-28] MEDS ORDERED: ACETAMINOPHEN 325MG TABLET PO PRN (05:00)
[2019-04-28 08:00] VITALS: BP 217/81
[2019-04-28] MEDS: NIFEDIPINE XL 90MG TAB PO SCH (09:43)
[2019-04-28] MEDS: METOPROLOL TARTRATE 25MG TABLET PO SCH ×2 (09:44→21:41)
[2019-04-28] MEDS: FOLIC ACID/VITAMIN B COMP W-C TABLET PO SCH (09:44)
[2019-04-28] MEDS: CARBAMAZEPINE 100MG TABLET CHEW PO SCH ×2 (09:44→18:56)
[2019-04-28] MEDS: PANTOPRAZOLE 40MG DR TABLET PO SCH (09:48)
[2019-04-28] MEDS ORDERED: GLIPIZIDE 5MG XL TABLET PO SCH (10:00)
[2019-04-28] MEDS ORDERED: INSULIN GLARGINE UD 100 UNITS/ML SYR SUBCUT SCH (10:00)
[2019-04-28 11:36] VITALS: BP 217/81
[2019-04-28] MEDS ORDERED: HYDRALAZINE 20MG/ML VIAL IV PRN ×2 (12:15→14:15)
[2019-04-28] MEDS: TIMOLOL MALEATE 0.5% OPHTH DROPS 5ML EACHEYE SCH ×2 (13:41→21:42)
[2019-04-28] MEDS: GABAPENTIN 100MG CAPSULE PO SCH ×2 (16:33→21:39)
[2019-04-28] MEDS: CLONIDINE 0.1MG TABLET PO SCH (16:35)
[2019-04-28] MEDS: NITROGLYCERIN OINT 1GM/INCH UDPKT TD SCH (18:56)
[2019-04-28] MEDS: SODIUM CHLORIDE 0.45% 1,000 ML IV SCH (18:57)
[2019-04-28 20:00] VITALS: BP 162/65
[2019-04-28] MEDS ORDERED: DEXTROSE 50% WATER 50ML SYRINGE IV PRN (21:00)
[2019-04-28] MEDS: INSULIN LISPRO 100 UNITS/ML SUBCUT SCH (21:38)
[2019-04-28] MEDS: HYDRALAZINE HCL 100MG TABLET PO SCH (21:40)
[2019-04-28] MEDS: ATORVASTATIN CALCIUM 10MG TABLET PO SCH (21:40)
[2019-04-28] MEDS: BLOOD SUGAR DIAGNOSTIC STRIP TEST SCH (21:40)
[2019-04-28] MEDS: LATANOPROST 0.005% OPHTH DROPS 2.5ML EACHEYE SCH (21:41)
[2019-04-29] VITALS: BP 149/67
[2019-04-29] MEDS: NITROGLYCERIN OINT 1GM/INCH UDPKT TD SCH ×4 (01:15→18:21)
[2019-04-29] MEDS: IPRATROPIUM/ALBUTEROL 0.5-3(2.5)MG/3ML NEB NEB SCH ×5 (02:55→20:25)
[2019-04-29 04:00] VITALS: BP 171/63
[2019-04-29] MEDS: GABAPENTIN 100MG CAPSULE PO SCH ×3 (05:21→21:47)
[2019-04-29] MEDS: HYDRALAZINE HCL 100MG TABLET PO SCH ×3 (05:22→21:47)
[2019-04-29] MEDS: SODIUM CHLORIDE 0.45% 1,000 ML IV SCH ×2 (05:29→21:48)
[2019-04-29] MEDS: PANTOPRAZOLE 40MG DR TABLET PO SCH (06:23)
[2019-04-29] MEDS: BLOOD SUGAR DIAGNOSTIC STRIP TEST SCH ×4 (06:24→21:48)
[2019-04-29 08:00] VITALS: BP 173/66
[2019-04-29 08:48] LABS: CLARITY URINE CLEAR (CLEAR); COLOR URINE YELLOW (YELLOW); KETONES URINE NEGATIVE (NEGATIVE); LEUKOCYTE ESTERASE URINE TRACE (NEGATIVE); NITRITE URINE NEGATIVE (NEGATIVE); OCCULT BLOOD URINE TRACE (NEGATIVE); PROTEIN URINE 4+ (NEGATIVE); SPECIFIC GRAVITY URINE 1.014 (1.005-1.030); UROBILINOGEN URINE 0.2 E.U./dL (0.2-1.0)
[2019-04-29] MEDS: METOPROLOL TARTRATE 25MG TABLET PO SCH ×2 (09:07→21:48)
[2019-04-29] MEDS: FOLIC ACID/VITAMIN B COMP W-C TABLET PO SCH (09:07)
[2019-04-29] MEDS: INSULIN LISPRO 100 UNITS/ML SUBCUT SCH ×4 (09:07→21:44)
[2019-04-29] MEDS: NIFEDIPINE XL 90MG TAB PO SCH (09:08)
[2019-04-29] MEDS: GLIPIZIDE XL 2.5MG TABLET PO SCH (09:08)
[2019-04-29] MEDS: CLONIDINE 0.1MG TABLET PO SCH ×3 (09:09→18:22)
[2019-04-29] MEDS: CARBAMAZEPINE 100MG TABLET CHEW PO SCH ×2 (09:09→18:17)
[2019-04-29] MEDS: ENOXAPARIN 30MG/0.3ML SYR SUBCUT SCH (09:11)
[2019-04-29] MEDS: TIMOLOL MALEATE 0.5% OPHTH DROPS 5ML EACHEYE SCH ×2 (09:39→21:46)
[2019-04-29 12:00] VITALS: BP 178/59
[2019-04-29 13:00] LABS: BASOPHILS % 0.1 % (0.0-2.0); EOSINOPHILS % 0.7 % (0.0-5.0); HEMATOCRIT. 24.3 % (36.0-48.0); HEMOGLOBIN. 7.7 g/dL (12.0-16.0); LYMPHOCYTES % 27.4 % (20.0-50.0); MEAN CORPUSCULAR VOLUME 87.9 fL (81.0-99.0); MEAN PLATELET VOLUME 8.7 fl (7.4-10.4); MONOCYTES % 6.8 % (2.0-8.0); PLATELET 252 x1000/uL (130-400); RED BLOOD CELL COUNT 2.76 mill/uL (4.2-5.4); RED CELL DISTRIBUTION WIDTH 15.9 % (11.6-14.6)
[2019-04-29 13:13] LABS: CHLORIDE 113 mEq/L (98-107)
[2019-04-29 13:21] LABS: LDL CHOLESTEROL 63 mg/dL (5-100)
[2019-04-29 13:22] LABS: CREATINE KINASE 75 IU/L (26-192); HDL CHOLESTEROL 45 mg/dL (40-59)
[2019-04-29 13:26] LABS: CREATINE KINASE MB FRACTION < 1.0 ng/mL (0.5-3.6)
[2019-04-29] MEDS ORDERED: CEFTRIAXONE 1 G PREMIX 50 ML IV SCH (14:00)
[2019-04-29 16:00] VITALS: BP 132/54
[2019-04-29] MEDS: CEFTRIAXONE 1,000 MG in DEXTROSE 5% WATER 50 ML IV SCH (18:17)
[2019-04-29] MEDS: INSULIN GLARGINE UD 100 UNITS/ML SYR SUBCUT SCH (18:18)
[2019-04-29 20:00] VITALS: BP 174/52
[2019-04-29] MEDS: LATANOPROST 0.005% OPHTH DROPS 2.5ML EACHEYE SCH (21:46)
[2019-04-29] MEDS: ATORVASTATIN CALCIUM 10MG TABLET PO SCH (21:48)
[2019-04-30] VITALS (7 sets, daily range): BP systolic 100–160; BP diastolic 50–66
[2019-04-30] MEDS: IPRATROPIUM/ALBUTEROL 0.5-3(2.5)MG/3ML NEB NEB SCH ×4 (03:50→22:18)
[2019-04-30] MEDS: GABAPENTIN 100MG CAPSULE PO SCH ×3 (05:42→21:30)
[2019-04-30] MEDS: HYDRALAZINE HCL 100MG TABLET PO SCH ×3 (05:43→21:40)
[2019-04-30] MEDS: NITROGLYCERIN OINT 1GM/INCH UDPKT TD SCH ×4 (05:46→17:54)
[2019-04-30] MEDS: BLOOD SUGAR DIAGNOSTIC STRIP TEST SCH ×4 (06:49→21:00)
[2019-04-30] MEDS: PANTOPRAZOLE 40MG DR TABLET PO SCH (06:49)
[2019-04-30] MEDS: INSULIN LISPRO 100 UNITS/ML SUBCUT SCH ×4 (07:42→21:33)
[2019-04-30] MEDS: ENOXAPARIN 30MG/0.3ML SYR SUBCUT SCH (08:55)
[2019-04-30] MEDS: CARBAMAZEPINE 100MG TABLET CHEW PO SCH ×2 (08:58→17:54)
[2019-04-30] MEDS: METOPROLOL TARTRATE 25MG TABLET PO SCH ×2 (08:58→20:45)
[2019-04-30] MEDS: GLIPIZIDE XL 2.5MG TABLET PO SCH (08:59)
[2019-04-30] MEDS: FOLIC ACID/VITAMIN B COMP W-C TABLET PO SCH (08:59)
[2019-04-30] MEDS: CLONIDINE 0.1MG TABLET PO SCH (09:17)
[2019-04-30] MEDS: NIFEDIPINE XL 90MG TAB PO SCH (09:17)
[2019-04-30] MEDS: TIMOLOL MALEATE 0.5% OPHTH DROPS 5ML EACHEYE SCH ×2 (09:18→20:46)
[2019-04-30] MEDS: INSULIN GLARGINE UD 100 UNITS/ML SYR SUBCUT SCH (10:01)
[2019-04-30] MEDS: SODIUM CHLORIDE 0.45% 1,000 ML IV SCH ×2 (10:06→14:40)
[2019-04-30] MEDS: CLONIDINE 0.2MG TABLET PO SCH ×2 (12:00→17:00)
[2019-04-30] MEDS: CEFTRIAXONE 1,000 MG in DEXTROSE 5% WATER 50 ML IV SCH (14:38)
[2019-04-30 17:24] LABS: BASOPHILS % 0.2 % (0.0-2.0); EOSINOPHILS % 0.7 % (0.0-5.0); HEMATOCRIT. 24.7 % (36.0-48.0); HEMOGLOBIN. 7.7 g/dL (12.0-16.0); LYMPHOCYTES % 19.1 % (20.0-50.0); MEAN CORPUSCULAR HEMOGLOBIN 27.5 pg (28.0-32.0); MEAN CORPUSCULAR VOLUME 88.4 fL (81.0-99.0); MEAN PLATELET VOLUME 9.1 fl (7.4-10.4); MONOCYTES % 6.2 % (2.0-8.0); NEUTROPHILS % 73.8 % (40.0-76.0); PLATELET 256 x1000/uL (130-400); RED BLOOD CELL COUNT 2.79 mill/uL (4.2-5.4); RED CELL DISTRIBUTION WIDTH 15.7 % (11.6-14.6)
[2019-04-30 17:44] LABS: CHLORIDE 110 mEq/L (98-107)
[2019-04-30 17:54] LABS: PHOSPHORUS 5.3 mg/dL (2.5-4.9)
[2019-04-30 17:55] LABS: CREATINE KINASE 80 IU/L (26-192)
[2019-04-30 17:56] LABS: CREATINE KINASE MB FRACTION < 1.0 ng/mL (0.5-3.6)
[2019-04-30 18:01] LABS: TOTAL IRON BINDING CAPACITY 199 ug/dL (250-450)
[2019-04-30 18:08] LABS: HEPATITIS B SURFACE ANTIGEN NEGATIVE
[2019-04-30] MEDS: ATORVASTATIN CALCIUM 10MG TABLET PO SCH (20:45)
[2019-04-30] MEDS: LATANOPROST 0.005% OPHTH DROPS 2.5ML EACHEYE SCH (20:46)
[2019-04-30] MEDS: SENNOSIDES/DOCUSATE SOD 8.6/50MG TABLET PO SCH (21:30)
[2019-05-01] VITALS (7 sets, daily range): BP systolic 125–199; BP diastolic 56–100
[2019-05-01] MEDS: NITROGLYCERIN OINT 1GM/INCH UDPKT TD SCH ×5 (00:56→23:12)
[2019-05-01] MEDS: CLONIDINE 0.1MG TABLET PO PRN ×2 (00:59→08:58)
[2019-05-01] MEDS: IPRATROPIUM/ALBUTEROL 0.5-3(2.5)MG/3ML NEB NEB SCH ×4 (01:29→21:30)
[2019-05-01] MEDS: GABAPENTIN 100MG CAPSULE PO SCH ×3 (05:32→21:49)
[2019-05-01] MEDS: HYDRALAZINE HCL 100MG TABLET PO SCH ×3 (05:33→22:59)
[2019-05-01] MEDS: BLOOD SUGAR DIAGNOSTIC STRIP TEST SCH ×4 (06:32→20:37)
[2019-05-01] MEDS: PANTOPRAZOLE 40MG DR TABLET PO SCH (06:36)
[2019-05-01] MEDS: GLIPIZIDE XL 2.5MG TABLET PO SCH (07:50)
[2019-05-01] MEDS: INSULIN LISPRO 100 UNITS/ML SUBCUT SCH ×4 (07:50→21:07)
[2019-05-01] MEDS: ENOXAPARIN 30MG/0.3ML SYR SUBCUT SCH (08:56)
[2019-05-01] MEDS: NIFEDIPINE XL 90MG TAB PO SCH (08:56)
[2019-05-01] MEDS: METOPROLOL TARTRATE 25MG TABLET PO SCH ×2 (08:57→21:06)
[2019-05-01] MEDS: FOLIC ACID/VITAMIN B COMP W-C TABLET PO SCH (08:57)
[2019-05-01] MEDS: CLONIDINE 0.2MG TABLET PO SCH ×3 (08:57→21:49)
[2019-05-01] MEDS: POLYETHYLENE GLYCOL 3350 (17GM) 1 DOSE PACK PO SCH (08:57)
[2019-05-01] MEDS: DOCUSATE SODIUM 100MG CAPSULE PO SCH ×2 (08:57→17:06)
[2019-05-01] MEDS: CARBAMAZEPINE 100MG TABLET CHEW PO SCH ×2 (08:57→17:08)
[2019-05-01] MEDS: TIMOLOL MALEATE 0.5% OPHTH DROPS 5ML EACHEYE SCH ×2 (09:01→21:05)
[2019-05-01] MEDS ORDERED: SORBITOL 70% SOLN 30ML PO SCH (11:00)
[2019-05-01] MEDS: INSULIN GLARGINE UD 100 UNITS/ML SYR SUBCUT SCH (11:08)
[2019-05-01] MEDS: SODIUM CHLORIDE 0.45% 1,000 ML IV SCH ×2 (13:05→23:00)
[2019-05-01] MEDS: CEFTRIAXONE 1,000 MG in DEXTROSE 5% WATER 50 ML IV SCH (13:54)
[2019-05-01] MEDS: IRON SUCROSE COMPLEX 100 MG/5 ML ML IV SCH (14:44)
[2019-05-01] MEDS: SENNOSIDES/DOCUSATE SOD 8.6/50MG TABLET PO SCH (21:05)
[2019-05-01] MEDS: LATANOPROST 0.005% OPHTH DROPS 2.5ML EACHEYE SCH (21:05)
[2019-05-01] MEDS: ATORVASTATIN CALCIUM 10MG TABLET PO SCH (21:05)
[2019-05-02] VITALS (7 sets, daily range): BP systolic 111–167; BP diastolic 50–78
[2019-05-02] MEDS: IPRATROPIUM/ALBUTEROL 0.5-3(2.5)MG/3ML NEB NEB SCH ×3 (02:14→15:01)
[2019-05-02] MEDS: GABAPENTIN 100MG CAPSULE PO SCH ×2 (06:14→13:28)
[2019-05-02] MEDS: CLONIDINE 0.2MG TABLET PO SCH ×2 (06:15→13:29)
[2019-05-02] MEDS: HYDRALAZINE HCL 100MG TABLET PO SCH ×2 (06:15→13:28)
[2019-05-02] MEDS: NITROGLYCERIN OINT 1GM/INCH UDPKT TD SCH ×2 (06:18→13:19)
[2019-05-02] MEDS: BLOOD SUGAR DIAGNOSTIC STRIP TEST SCH ×2 (06:20→13:13)
[2019-05-02] MEDS: PANTOPRAZOLE 40MG DR TABLET PO SCH ×2 (06:20→09:28)
[2019-05-02] MEDS: INSULIN LISPRO 100 UNITS/ML SUBCUT SCH ×2 (07:50→13:23)
[2019-05-02] MEDS: FOLIC ACID/VITAMIN B COMP W-C TABLET PO SCH (09:27)
[2019-05-02] MEDS: TIMOLOL MALEATE 0.5% OPHTH DROPS 5ML EACHEYE SCH (09:27)
[2019-05-02] MEDS: GLIPIZIDE XL 2.5MG TABLET PO SCH (09:28)
[2019-05-02] MEDS: METOPROLOL TARTRATE 25MG TABLET PO SCH (09:28)
[2019-05-02] MEDS: CARBAMAZEPINE 100MG TABLET CHEW PO SCH (09:28)
[2019-05-02] MEDS: DOCUSATE SODIUM 100MG CAPSULE PO SCH (09:28)
[2019-05-02] MEDS: ENOXAPARIN 30MG/0.3ML SYR SUBCUT SCH (09:29)
[2019-05-02] MEDS: POLYETHYLENE GLYCOL 3350 (17GM) 1 DOSE PACK PO SCH (09:33)
[2019-05-02] MEDS: IRON SUCROSE COMPLEX 100 MG/5 ML ML IV SCH (09:34)
[2019-05-02] MEDS: NIFEDIPINE XL 90MG TAB PO SCH (09:34)
[2019-05-02 09:42] LABS: BASOPHILS % 0.1 % (0.0-2.0); EOSINOPHILS % 0.9 % (0.0-5.0); HEMOGLOBIN. 7.3 g/dL (12.0-16.0); LYMPHOCYTES % 23.4 % (20.0-50.0); MEAN CORPUSCULAR VOLUME 87.7 fL (81.0-99.0); MEAN PLATELET VOLUME 8.8 fl (7.4-10.4); MONOCYTES % 6.3 % (2.0-8.0); NEUTROPHILS % 69.3 % (40.0-76.0); PLATELET 208 x1000/uL (130-400); RED BLOOD CELL COUNT 2.51 mill/uL (4.2-5.4); RED CELL DISTRIBUTION WIDTH 16.2 % (11.6-14.6)
[2019-05-02] MEDS: INSULIN GLARGINE UD 100 UNITS/ML SYR SUBCUT SCH (10:09)
[2019-05-02] MEDS ORDERED: MINOXIDIL 2.5MG TABLET PO SCH (12:00)
[2019-05-02] MEDS ORDERED: CEFAZOLIN 500MG in DEXTROSE 5% WATER 50ML IV SCH (13:00)
[2019-05-02] MEDS: CLONIDINE 0.1MG TABLET PO PRN (13:28)
[2019-05-02] MEDS: SODIUM CHLORIDE 0.45% 1,000 ML IV SCH (15:26)
[2019-05-02] MEDS ORDERED: CEFAZOLIN SODIUM 500MG/VIAL IM SCH (22:00)
[2019-05-02] MEDS ORDERED: CEFAZOLIN SODIUM 500MG/VIAL IV SCH (22:00)
== END 2019-05-02 16:53 | DRG 682 ==
LOC: ER 01:52 → EDBEDREQTM 04:32 → EDBEDREQ 04:32 → 6WST 05:17 → EDBEDREQ 05:22 → EDBEDREQTM 05:22 → ENRESERV 07:30
PROVIDERS: ADMIT Internal Medicine Nephrology; ATTEND Internal Medicine Nephrology
DX: N17.9 Acute kidney failure, unspecified (principal); E43 Unspecified severe protein-calorie malnutrition; I13.2 Hypertensive heart and chronic kidney disease with heart failure and with stage 5 chronic kidney disease, or end stage renal disease; E87.2 Acidosis; K62.5 Hemorrhage of anus and rectum; N39.0 Urinary tract infection, site not specified; I69.354 Hemiplegia and hemiparesis following cerebral infarction affecting left non-dominant side; D64.9 Anemia, unspecified; E11.22 Type 2 diabetes mellitus with diabetic chronic kidney disease; E87.5 Hyperkalemia; F03.90 Unspecified dementia, unspecified severity, without behavioral disturbance, psychotic disturbance, mood disturbance, and anxiety; G40.909 Epilepsy, unspecified, not intractable, without status epilepticus; H54.8 Legal blindness, as defined in USA; B96.4 Proteus (mirabilis) (morganii) as the cause of diseases classified elsewhere; B96.89 Other specified bacterial agents as the cause of diseases classified elsewhere; E78.00 Pure hypercholesterolemia, unspecified; E78.5 Hyperlipidemia, unspecified; E86.0 Dehydration; I50.9 Heart failure, unspecified; K21.9 Gastro-esophageal reflux disease without esophagitis; K59.09 Other constipation; Z79.899 Other long term (current) drug therapy; Z79.4 Long term (current) use of insulin; Z68.31 Body mass index [BMI] 31.0-31.9, adult
CPT/HCPCS: 36415; 71045; 76700; 80048; 80061; 81003; 82550; 82553; 82575; 82728; 82962; 83036; 83540; 83550; 83880; 84100; 84443; 84484; 85379; 86803; 86850; 86900; 87077; 87186; 87340; 92610; 93005; 93306; 93970; 94640; 99285; J0690; J0696; J1650; J1815; J2405; J7030; J7060; J7620; A4315

== ENCOUNTER 2019-05-06 13:47 | Inpatient (IN) | payer MEDICARE, MEDICAID ==
[~2019-05-06] VITALS: Ht 165.1 cm; Wt 83.5 kg
[2019-05-06] MEDS ORDERED: SODIUM CHLORIDE 0.9% 1,000 ML IV ONE (14:44)
[2019-05-06] MEDS ORDERED: PIPERACILLIN/TAZ 3.375G PREMIX 50 ML IV ONE (14:45)
[2019-05-06] MEDS ORDERED: VANCOMYCIN 1 G PREMIX 200 ML IV SCH (14:45)
[2019-05-06] MEDS ORDERED: PANTOPRAZOLE SODIUM 40 MG/VIAL IV STA (14:46)
[2019-05-06 15:08] LABS: BASOPHILS % 0.2 % (0.0-2.0); EOSINOPHILS % 0.2 % (0.0-5.0); LYMPHOCYTES % 25.7 % (20.0-50.0); MEAN CORPUSCULAR HEMOGLOBIN 28.7 pg (28.0-32.0); MEAN CORPUSCULAR VOLUME 88.2 fL (81.0-99.0); MEAN PLATELET VOLUME 8.6 fl (7.4-10.4); MONOCYTES % 8.3 % (2.0-8.0); NEUTROPHILS % 65.6 % (40.0-76.0); PLATELET 228 x1000/uL (130-400); RED BLOOD CELL COUNT 2.22 mill/uL (4.2-5.4); RED CELL DISTRIBUTION WIDTH 16.5 % (11.6-14.6)
[2019-05-06 15:12] LABS: PROTHROMBIN TIME 10.1 sec (9.6-11.0)
[2019-05-06 15:14] LABS: CHLORIDE 105 mEq/L (98-107); HEMATOCRIT. 19.6 % (36.0-48.0); HEMOGLOBIN. 6.4 g/dL (12.0-16.0)
[2019-05-06] MEDS ORDERED: DOCUSATE SODIUM 100MG CAPSULE PO PRN (15:30)
[2019-05-06] MEDS ORDERED: ONDANSETRON HCL 4MG/2ML INJ IV PRN (15:30)
[2019-05-06 15:33] LABS: BG BASE EXCESS -2.2 mmol/L (-2.0-2.0); BG CARBOXYHEMOGLOBIN 0.4 % (0.5-1.5); BG DEOXYHEMOGLOBIN 1.8 % (0.0-5.0); BG FRACTION INSPIRED OXYGEN 28; BG HCO3 ACT 23.5 mmol/L (22.0-26.0); BG METHEMOGLOBIN 0.3 % (0.0-1.5); BG OXYGEN SATURATION 98.2 % (92.0-98.5); BG OXYHEMOGLOBIN 97.5 % (94.0-97.0); BG PCO2 45.1 mmHg (35.0-45.0); BG PH 7.334 (7.350-7.450); BG SAMPLE SITE RIGHT BRACHIAL; BG TOTAL HEMOGLOBIN 6.7 g/dL (12.0-18.0); BG VENT MODE NASAL CANNULA
[2019-05-06 19:04] LABS: CLARITY URINE TURBID (CLEAR); COLOR URINE YELLOW (YELLOW); KETONES URINE NEGATIVE (NEGATIVE); LEUKOCYTE ESTERASE URINE 1+ (NEGATIVE); NITRITE URINE NEGATIVE (NEGATIVE); OCCULT BLOOD URINE TRACE (NEGATIVE); PH URINE 6.5 (4.5-8.0); PROTEIN URINE 3+ (NEGATIVE); UROBILINOGEN URINE 0.2 E.U./dL (0.2-1.0)
[2019-05-06] MEDS ORDERED: CEFAZOLIN 500 MG in DEXTROSE 5% WATER 50 ML IV SCH (21:00)
[2019-05-06] MEDS ORDERED: CEFAZOLIN SODIUM 500MG/VIAL IM SCH (22:00)
[2019-05-06 22:30] VITALS: BP 97/71
[2019-05-06 23:28] VITALS: BP 138/82
[2019-05-07] VITALS (27 sets, daily range): BP systolic 115–218; BP diastolic 35–127
[2019-05-07] MEDS ORDERED: DEXTROSE 50% WATER 50ML SYRINGE IV PRN ×2 (01:30)
[2019-05-07] MEDS: LATANOPROST 0.005% OPHTH DROPS 2.5ML EACHEYE SCH ×2 (03:00→21:46)
[2019-05-07] MEDS: BLOOD SUGAR DIAGNOSTIC STRIP TEST SCH ×4 (06:50→21:46)
[2019-05-07 07:02] LABS: HEMATOCRIT. 27.2 % (36.0-48.0); HEMOGLOBIN. 8.7 g/dL (12.0-16.0); MEAN CORPUSCULAR HEMOGLOBIN 28.4 pg (28.0-32.0); MEAN CORPUSCULAR VOLUME 88.5 fL (81.0-99.0); MEAN PLATELET VOLUME 8.8 fl (7.4-10.4); PLATELET 258 x1000/uL (130-400); RED BLOOD CELL COUNT 3.07 mill/uL (4.2-5.4); RED CELL DISTRIBUTION WIDTH 16.1 % (11.6-14.6)
[2019-05-07 07:06] LABS: CHLORIDE 106 mEq/L (98-107)
[2019-05-07] MEDS: INSULIN LISPRO 100 UNITS/ML SUBCUT SCH ×4 (07:20→21:58)
[2019-05-07 07:31] LABS: LDL CHOLESTEROL 67 mg/dL (5-100)
[2019-05-07 07:34] LABS: HDL CHOLESTEROL 59 mg/dL (40-59)
[2019-05-07] MEDS: SODIUM CHLORIDE 0.45% 1,000 ML IV SCH ×2 (07:56→10:39)
[2019-05-07] MEDS: NIFEDIPINE XL 90MG TAB PO SCH (10:26)
[2019-05-07] MEDS: AMLODIPINE 5MG TABLET PO SCH (10:27)
[2019-05-07] MEDS: TIMOLOL MALEATE 0.5% OPHTH DROPS 5ML EACHEYE SCH ×2 (10:28→21:46)
[2019-05-07] MEDS ORDERED: CEFAZOLIN 1000MG PREMIX 50 ML IV SCH (12:00)
[2019-05-07] MEDS ORDERED: NA PHOS,M-B/NA PHOS,DI-BA ENEMA 118ML PR SCH (12:45)
[2019-05-07 15:22] LABS: NUCLEATED RED BLOOD CELLS 1 /100 WBC; PLATELET ESTIMATE NORMAL
[2019-05-07] MEDS: ACETAMINOPHEN 325MG TABLET PO PRN (19:23)
[2019-05-07] MEDS: CLONIDINE 0.1MG TABLET PO PRN (19:24)
[2019-05-07] MEDS: ATORVASTATIN CALCIUM 10MG TABLET PO SCH (21:46)
[2019-05-08] VITALS (14 sets, daily range): BP systolic 91–194; BP diastolic 43–120
[2019-05-08] MEDS: SODIUM CHLORIDE 0.45% 1,000 ML IV SCH ×2 (00:36→18:07)
[2019-05-08] MEDS: CLONIDINE 0.1MG TABLET PO PRN (01:42)
[2019-05-08] MEDS: BISACODYL 5MG TABLET PO PRN ×2 (01:42→09:01)
[2019-05-08] MEDS: IPRATROPIUM/ALBUTEROL 0.5-3(2.5)MG/3ML NEB NEB SCH ×4 (01:46→20:43)
[2019-05-08 06:41] LABS: BASOPHILS % 0.2 % (0.0-2.0); EOSINOPHILS % 0.3 % (0.0-5.0); HEMATOCRIT. 27.6 % (36.0-48.0); LYMPHOCYTES % 11.7 % (20.0-50.0); MEAN CORPUSCULAR VOLUME 85.9 fL (81.0-99.0); MEAN PLATELET VOLUME 8.7 fl (7.4-10.4); MONOCYTES % 11.7 % (2.0-8.0); NEUTROPHILS % 76.1 % (40.0-76.0); PLATELET 226 x1000/uL (130-400); RED BLOOD CELL COUNT 3.22 mill/uL (4.2-5.4); RED CELL DISTRIBUTION WIDTH 16.8 % (11.6-14.6)
[2019-05-08] MEDS: BLOOD SUGAR DIAGNOSTIC STRIP TEST SCH ×4 (06:47→21:21)
[2019-05-08] MEDS: INSULIN LISPRO 100 UNITS/ML SUBCUT SCH ×4 (07:20→22:11)
[2019-05-08] MEDS ORDERED: DOCUSATE SODIUM 250MG CAPSULE PO SCH (09:00)
[2019-05-08] MEDS: NIFEDIPINE XL 90MG TAB PO SCH (09:00)
[2019-05-08] MEDS: AMLODIPINE 5MG TABLET PO SCH (09:00)
[2019-05-08] MEDS: TIMOLOL MALEATE 0.5% OPHTH DROPS 5ML EACHEYE SCH ×2 (09:03→22:07)
[2019-05-08] MEDS: DOCUSATE SODIUM 250MG CAPSULE PO SCH ×2 (09:30→18:47)
[2019-05-08] MEDS: BISACODYL 10MG SUPP PR SCH (09:30)
[2019-05-08] MEDS: NIFEDIPINE XL 30MG TAB PO SCH ×2 (10:00→21:00)
[2019-05-08 13:17] LABS: BG BASE EXCESS -2.1 mmol/L (-2.0-2.0); BG CARBOXYHEMOGLOBIN 0.4 % (0.5-1.5); BG DEOXYHEMOGLOBIN 4.1 % (0.0-5.0); BG FRACTION INSPIRED OXYGEN 24; BG HCO3 ACT 23.5 mmol/L (22.0-26.0); BG METHEMOGLOBIN 0.1 % (0.0-1.5); BG OXYGEN SATURATION 95.9 % (92.0-98.5); BG OXYHEMOGLOBIN 95.4 % (94.0-97.0); BG PCO2 43.9 mmHg (35.0-45.0); BG PH 7.347 (7.350-7.450); BG PO2 83.6 mmHg (75.0-100.0); BG SAMPLE SITE RIGHT BRACHIAL; BG TOTAL HEMOGLOBIN 9.6 g/dL (12.0-18.0); BG VENT MODE NASAL CANNULA
[2019-05-08] MEDS ORDERED: NA PHOS,M-B/NA PHOS,DI-BA ENEMA 118ML PR ONE (16:15)
[2019-05-08] MEDS ORDERED: NA PHOS,M-B/NA PHOS,DI-BA ENEMA 118ML PR NR (16:30)
[2019-05-08] MEDS ORDERED: VANCOMYCIN 1,750 MG in DEXT 5% WATER 250 ML IV NR (18:00)
[2019-05-08] MEDS: PIPERACILLIN/TAZOBACTAM 2.25 G in DEXTROSE 5% WATER 50 ML IV SCH (18:47)
[2019-05-08] MEDS: ATORVASTATIN CALCIUM 10MG TABLET PO SCH (22:05)
[2019-05-08] MEDS: LATANOPROST 0.005% OPHTH DROPS 2.5ML EACHEYE SCH (22:06)
[2019-05-09] VITALS (16 sets, daily range): BP systolic 90–148; BP diastolic 58–99
[2019-05-09] MEDS: IPRATROPIUM/ALBUTEROL 0.5-3(2.5)MG/3ML NEB NEB SCH ×4 (01:06→21:58)
[2019-05-09] MEDS: PIPERACILLIN/TAZOBACTAM 2.25 G in DEXTROSE 5% WATER 50 ML IV SCH ×3 (02:50→19:50)
[2019-05-09] MEDS: BLOOD SUGAR DIAGNOSTIC STRIP TEST SCH ×4 (06:17→20:40)
[2019-05-09 06:43] LABS: BASOPHILS % 0.2 % (0.0-2.0); EOSINOPHILS % 0.1 % (0.0-5.0); HEMATOCRIT. 27.4 % (36.0-48.0); LYMPHOCYTES % 11.8 % (20.0-50.0); MEAN CORPUSCULAR HEMOGLOBIN 28.4 pg (28.0-32.0); MEAN CORPUSCULAR VOLUME 86.8 fL (81.0-99.0); MEAN PLATELET VOLUME 8.6 fl (7.4-10.4); MONOCYTES % 13.3 % (2.0-8.0); NEUTROPHILS % 74.6 % (40.0-76.0); PLATELET 222 x1000/uL (130-400); RED BLOOD CELL COUNT 3.16 mill/uL (4.2-5.4); RED CELL DISTRIBUTION WIDTH 17.3 % (11.6-14.6)
[2019-05-09] MEDS ORDERED: SORBITOL 70% SOLN 30ML PO PRN (08:30)
[2019-05-09] MEDS: BISACODYL 10MG SUPP PR SCH (09:00)
[2019-05-09] MEDS: DOCUSATE SODIUM 250MG CAPSULE PO SCH ×2 (09:34→17:00)
[2019-05-09] MEDS: TIMOLOL MALEATE 0.5% OPHTH DROPS 5ML EACHEYE SCH ×2 (09:35→20:39)
[2019-05-09] MEDS: BISACODYL 5MG TABLET PO PRN (09:35)
[2019-05-09] MEDS: NIFEDIPINE XL 30MG TAB PO SCH ×2 (09:35→20:40)
[2019-05-09] MEDS: INSULIN LISPRO 100 UNITS/ML SUBCUT SCH ×4 (09:36→20:41)
[2019-05-09] MEDS ORDERED: FUROSEMIDE 40MG/4ML VIAL IVP NR (09:45)
[2019-05-09] MEDS: POLYVINYL ALCOHOL OPHTH DROPS 15ML BOTHEYE SCH ×2 (19:50→23:33)
[2019-05-09] MEDS: LATANOPROST 0.005% OPHTH DROPS 2.5ML EACHEYE SCH (20:39)
[2019-05-09] MEDS: ATORVASTATIN CALCIUM 10MG TABLET PO SCH (20:39)
[2019-05-09] MEDS: GUAIFENESIN 600MG ER TABLET PO SCH (20:39)
[2019-05-10] VITALS (13 sets, daily range): BP systolic 86–201; BP diastolic 51–107
[2019-05-10] MEDS: PIPERACILLIN/TAZOBACTAM 2.25 G in DEXTROSE 5% WATER 50 ML IV SCH ×3 (01:27→18:25)
[2019-05-10] MEDS: IPRATROPIUM/ALBUTEROL 0.5-3(2.5)MG/3ML NEB NEB SCH ×5 (03:36→20:39)
[2019-05-10] MEDS: POLYVINYL ALCOHOL OPHTH DROPS 15ML BOTHEYE SCH ×3 (05:00→18:00)
[2019-05-10] MEDS: BLOOD SUGAR DIAGNOSTIC STRIP TEST SCH ×4 (06:01→20:45)
[2019-05-10 06:31] LABS: BASOPHILS % 0.2 % (0.0-2.0); EOSINOPHILS % 0.4 % (0.0-5.0); HEMATOCRIT. 25.6 % (36.0-48.0); HEMOGLOBIN. 8.4 g/dL (12.0-16.0); LYMPHOCYTES % 15.7 % (20.0-50.0); MEAN CORPUSCULAR HEMOGLOBIN 28.4 pg (28.0-32.0); MEAN CORPUSCULAR VOLUME 86.7 fL (81.0-99.0); MEAN PLATELET VOLUME 8.7 fl (7.4-10.4); MONOCYTES % 9.4 % (2.0-8.0); NEUTROPHILS % 74.3 % (40.0-76.0); PLATELET 204 x1000/uL (130-400); RED BLOOD CELL COUNT 2.95 mill/uL (4.2-5.4); RED CELL DISTRIBUTION WIDTH 16.7 % (11.6-14.6)
[2019-05-10] MEDS: DOCUSATE SODIUM 250MG CAPSULE PO SCH ×2 (08:18→17:46)
[2019-05-10] MEDS: GUAIFENESIN 600MG ER TABLET PO SCH ×2 (08:18→20:45)
[2019-05-10] MEDS: BISACODYL 10MG SUPP PR SCH (08:18)
[2019-05-10] MEDS: TIMOLOL MALEATE 0.5% OPHTH DROPS 5ML EACHEYE SCH ×2 (08:18→20:45)
[2019-05-10] MEDS: INSULIN LISPRO 100 UNITS/ML SUBCUT SCH ×4 (08:20→20:42)
[2019-05-10] MEDS: NIFEDIPINE XL 30MG TAB PO SCH ×2 (08:25→20:45)
[2019-05-10 09:15] LABS: TOTAL IRON BINDING CAPACITY 139 ug/dL (250-450)
[2019-05-10] MEDS ORDERED: FUROSEMIDE 40MG/4ML VIAL IVP NR (13:15)
[2019-05-10] MEDS: HYDRALAZINE HCL 25MG TABLET PO SCH ×2 (13:25→21:47)
[2019-05-10] MEDS ORDERED: CLONIDINE 0.1MG TABLET PO NR (15:15)
[2019-05-10] MEDS: ATORVASTATIN CALCIUM 10MG TABLET PO SCH (20:45)
[2019-05-10] MEDS: LATANOPROST 0.005% OPHTH DROPS 2.5ML EACHEYE SCH (20:45)
[2019-05-11] VITALS (11 sets, daily range): BP systolic 92–211; BP diastolic 51–120
[2019-05-11] MEDS: POLYVINYL ALCOHOL OPHTH DROPS 15ML BOTHEYE SCH ×4 (00:53→17:47)
[2019-05-11] MEDS: PIPERACILLIN/TAZOBACTAM 2.25 G in DEXTROSE 5% WATER 50 ML IV SCH ×3 (01:18→17:48)
[2019-05-11] MEDS: IPRATROPIUM/ALBUTEROL 0.5-3(2.5)MG/3ML NEB NEB SCH ×3 (01:49→21:30)
[2019-05-11] MEDS: HYDRALAZINE HCL 25MG TABLET PO SCH ×3 (06:00→21:04)
[2019-05-11] MEDS: BLOOD SUGAR DIAGNOSTIC STRIP TEST SCH ×4 (06:28→21:04)
[2019-05-11 06:52] LABS: BASOPHILS % 0.2 % (0.0-2.0); EOSINOPHILS % 0.4 % (0.0-5.0); HEMATOCRIT. 27.2 % (36.0-48.0); HEMOGLOBIN. 8.8 g/dL (12.0-16.0); LYMPHOCYTES % 17.1 % (20.0-50.0); MEAN CORPUSCULAR VOLUME 86.7 fL (81.0-99.0); MEAN PLATELET VOLUME 8.2 fl (7.4-10.4); MONOCYTES % 5.8 % (2.0-8.0); NEUTROPHILS % 76.5 % (40.0-76.0); PLATELET 236 x1000/uL (130-400); RED BLOOD CELL COUNT 3.14 mill/uL (4.2-5.4); RED CELL DISTRIBUTION WIDTH 16.7 % (11.6-14.6)
[2019-05-11] MEDS: NIFEDIPINE XL 30MG TAB PO SCH ×2 (08:25→20:41)
[2019-05-11] MEDS: BISACODYL 10MG SUPP PR SCH (08:26)
[2019-05-11] MEDS: DOCUSATE SODIUM 250MG CAPSULE PO SCH ×2 (08:26→17:47)
[2019-05-11] MEDS: GUAIFENESIN 600MG ER TABLET PO SCH ×2 (08:26→20:23)
[2019-05-11] MEDS: INSULIN LISPRO 100 UNITS/ML SUBCUT SCH ×4 (08:27→21:14)
[2019-05-11] MEDS: TIMOLOL MALEATE 0.5% OPHTH DROPS 5ML EACHEYE SCH ×2 (08:27→20:33)
[2019-05-11] MEDS: FUROSEMIDE 40MG TABLET PO SCH (08:34)
[2019-05-11 09:00] LABS: BG BASE EXCESS -3.1 mmol/L (-2.0-2.0); BG CARBOXYHEMOGLOBIN 1.2 % (0.5-1.5); BG DEOXYHEMOGLOBIN 5.8 % (0.0-5.0); BG FRACTION INSPIRED OXYGEN 32; BG HCO3 ACT 23.1 mmol/L (22.0-26.0); BG METHEMOGLOBIN 0.3 % (0.0-1.5); BG OXYGEN SATURATION 94.1 % (92.0-98.5); BG OXYHEMOGLOBIN 92.7 % (94.0-97.0); BG PCO2 45.8 mmHg (35.0-45.0); BG PO2 78.3 mmHg (75.0-100.0); BG SAMPLE SITE RIGHT RADIAL; BG TOTAL HEMOGLOBIN 12.7 g/dL (12.0-18.0); BG VENT MODE NASAL CANNULA
[2019-05-11] MEDS ORDERED: FUROSEMIDE 40MG/4ML VIAL IVP SCH (09:00)
[2019-05-11] MEDS ORDERED: FUROSEMIDE 40MG TABLET PO SCH (09:00)
[2019-05-11] MEDS ORDERED: CLONIDINE 0.1MG TABLET PO PRN (09:45)
[2019-05-11] MEDS ORDERED: SODIUM BICARBONATE 4% (2.4MEQ) 5ML VIAL IV ONE (10:55)
[2019-05-11 16:02] LABS: PROTHROMBIN TIME 10.2 sec (9.6-11.0)
[2019-05-11] MEDS: ACETAMINOPHEN 325MG TABLET PO PRN (20:23)
[2019-05-11] MEDS: ATORVASTATIN CALCIUM 10MG TABLET PO SCH (20:23)
[2019-05-11] MEDS: LATANOPROST 0.005% OPHTH DROPS 2.5ML EACHEYE SCH (20:33)
[2019-05-12] VITALS (9 sets, daily range): BP systolic 112–137; BP diastolic 69–98
[2019-05-12] MEDS: PIPERACILLIN/TAZOBACTAM 2.25 G in DEXTROSE 5% WATER 50 ML IV SCH ×2 (01:49→09:09)
[2019-05-12] MEDS: IPRATROPIUM/ALBUTEROL 0.5-3(2.5)MG/3ML NEB NEB SCH ×3 (02:16→14:56)
[2019-05-12] MEDS: POLYVINYL ALCOHOL OPHTH DROPS 15ML BOTHEYE SCH ×3 (06:00→12:33)
[2019-05-12] MEDS: HYDRALAZINE HCL 25MG TABLET PO SCH ×2 (06:00→15:28)
[2019-05-12] MEDS: BLOOD SUGAR DIAGNOSTIC STRIP TEST SCH ×2 (06:13→12:27)
[2019-05-12 07:11] LABS: BASOPHILS % 0.1 % (0.0-2.0); EOSINOPHILS % 0.6 % (0.0-5.0); HEMATOCRIT. 27.9 % (36.0-48.0); LYMPHOCYTES % 13.6 % (20.0-50.0); MEAN CORPUSCULAR HEMOGLOBIN 27.9 pg (28.0-32.0); MEAN CORPUSCULAR VOLUME 86.8 fL (81.0-99.0); MEAN PLATELET VOLUME 8.3 fl (7.4-10.4); MONOCYTES % 6.3 % (2.0-8.0); NEUTROPHILS % 79.4 % (40.0-76.0); PLATELET 260 x1000/uL (130-400); RED BLOOD CELL COUNT 3.21 mill/uL (4.2-5.4); RED CELL DISTRIBUTION WIDTH 16.4 % (11.6-14.6)
[2019-05-12] MEDS: DOCUSATE SODIUM 250MG CAPSULE PO SCH (08:45)
[2019-05-12] MEDS: GUAIFENESIN 600MG ER TABLET PO SCH (08:45)
[2019-05-12] MEDS: NIFEDIPINE XL 30MG TAB PO SCH (08:46)
[2019-05-12] MEDS: FUROSEMIDE 40MG TABLET PO SCH (08:46)
[2019-05-12] MEDS: INSULIN LISPRO 100 UNITS/ML SUBCUT SCH ×2 (08:47→12:33)
[2019-05-12] MEDS: BISACODYL 10MG SUPP PR SCH (08:54)
[2019-05-12] MEDS: TIMOLOL MALEATE 0.5% OPHTH DROPS 5ML EACHEYE SCH (08:54)
== END 2019-05-12 16:30 | DRG 871 ==
LOC: ER 13:47 → EDBEDREQ 15:41 → 3WST 15:51 → ENRESERV 21:07
PROVIDERS: ADMIT Internal Medicine Nephrology; ATTEND Internal Medicine Nephrology
PROC: 30233N1 Transfusion of Nonautologous Red Blood Cells into Peripheral Vein, Percutaneous Approach (ICD-10-PCS; principal; 2019-05-06)
PROC: 05H533Z Insertion of Infusion Device into Right Subclavian Vein, Percutaneous Approach (ICD-10-PCS; 2019-05-08)
PROC: B546ZZA Ultrasonography of Right Subclavian Vein, Guidance (ICD-10-PCS; 2019-05-08)
PROC: 0W993ZZ Drainage of Right Pleural Cavity, Percutaneous Approach (ICD-10-PCS; 2019-05-11)
DX: A41.9 Sepsis, unspecified organism (principal); I50.33 Acute on chronic diastolic (congestive) heart failure; J96.00 Acute respiratory failure, unspecified whether with hypoxia or hypercapnia; N18.6 End stage renal disease; J69.0 Pneumonitis due to inhalation of food and vomit; I13.2 Hypertensive heart and chronic kidney disease with heart failure and with stage 5 chronic kidney disease, or end stage renal disease; I24.8 Other forms of acute ischemic heart disease; E46 Unspecified protein-calorie malnutrition; G93.40 Encephalopathy, unspecified; I31.3 Pericardial effusion (noninflammatory); N17.9 Acute kidney failure, unspecified; N39.0 Urinary tract infection, site not specified; J91.8 Pleural effusion in other conditions classified elsewhere; I69.354 Hemiplegia and hemiparesis following cerebral infarction affecting left non-dominant side; D63.1 Anemia in chronic kidney disease; E11.22 Type 2 diabetes mellitus with diabetic chronic kidney disease; E78.00 Pure hypercholesterolemia, unspecified; E78.5 Hyperlipidemia, unspecified; E86.9 Volume depletion, unspecified; G40.909 Epilepsy, unspecified, not intractable, without status epilepticus; I25.10 Atherosclerotic heart disease of native coronary artery without angina pectoris; K21.9 Gastro-esophageal reflux disease without esophagitis; K56.41 Fecal impaction; K64.9 Unspecified hemorrhoids; K80.20 Calculus of gallbladder without cholecystitis without obstruction; Z22.322 Carrier or suspected carrier of Methicillin resistant Staphylococcus aureus; Z79.899 Other long term (current) drug therapy; Z68.30 Body mass index [BMI] 30.0-30.9, adult; Z79.4 Long term (current) use of insulin
CPT/HCPCS: 32555; 36415; 36600; 71045; 74018; 74176; 76604; 76937; 78582; 80048; 80061; 80202; 81003; 82040; 82140; 82270; 82375; 82728; 82805; 82962; 83010; 83540; 83550; 83605; 83615; 83735; 84145; 84443; 84484; 85651; 86850; 86880; 86900; 86920; 88108; 88312; 92610; 93005; 93970; 94640; 94667; 96365; 97161; 99291; A9558; C1725; C9113; J0690; J1815; J1940; J2543; J3370; J3490; J7030; J7060; J7620; P9016; A4315

== ENCOUNTER → 2019-07-22 | Day surgery (SDC) | payer OTHER, MEDICAID ==
[~2019-07-22] VITALS: Ht 167.6 cm; Wt 74.8 kg
[2019-07-22] VITALS (13 sets, daily range): BP systolic 137–176; BP diastolic 56–71
[~2019-07-22] MED LIST changes: +CEFAZOLIN 1000MG PREMIX 50 ML IV ONE; +FENTANYL CITRATE/PF 50MCG/ML 2ML VIAL IV ONE; +FENTANYL CITRATE/PF 50MCG/ML 2ML VIAL ONE; +LIDOCAINE HCL 1% 20ML VIAL (Pyxis) INJ ONE; +SODIUM BICARBONATE 4% (2.4MEQ) 5ML VIAL IV ONE
== END | disposition home or self-care (01) ==
LOC: RADANGIO 08:04
PROVIDERS: ATTEND Internal Medicine Nephrology
DX: I12.9 Hypertensive chronic kidney disease with stage 1 through stage 4 chronic kidney disease, or unspecified chronic kidney disease (principal); E11.22 Type 2 diabetes mellitus with diabetic chronic kidney disease; N18.9 Chronic kidney disease, unspecified; E78.5 Hyperlipidemia, unspecified; H40.9 Unspecified glaucoma; Z79.899 Other long term (current) drug therapy
CPT/HCPCS: 36558; 36589; 77001; C1750; C1769; J0690; J1642; J3010; J3490; 99152; 99153; G0500

== ENCOUNTER 2019-10-31 11:03 | Inpatient (IN) | payer MEDICARE, MEDICAID ==
[~2019-10-31] VITALS: Ht 165.1 cm; Wt 63.5 kg
[~2019-10-31 11:03] MED LIST changes: -CARB100C4 PO; +CARB100C9 PO; -CEFAZOLIN 1000MG PREMIX 50 ML IV ONE; -FENTANYL CITRATE/PF 50MCG/ML 2ML VIAL IV ONE; -FENTANYL CITRATE/PF 50MCG/ML 2ML VIAL ONE; -LIDOCAINE HCL 1% 20ML VIAL (Pyxis) INJ ONE; -SODIUM BICARBONATE 4% (2.4MEQ) 5ML VIAL IV ONE
[2019-10-31] MEDS ORDERED: ENOX40DI8 SQ (11:26)
[2019-10-31] MEDS ORDERED: ONDANSETRON HCL 4MG/2ML INJ IV STA (11:27)
[2019-10-31 12:34] LABS: INR 0.9; PROTHROMBIN TIME 10.2 sec (9.6-11.0)
[2019-10-31 12:44] LABS: HEMATOCRIT. 39.6 % (36.0-48.0); HEMOGLOBIN. 12.9 g/dL (12.0-16.0); MEAN CORPUSCULAR HEMOGLOBIN 29.4 pg (28.0-32.0); MEAN CORPUSCULAR VOLUME 90.4 fL (81.0-99.0); MEAN PLATELET VOLUME 8.6 fl (7.4-10.4); PLATELET 294 x1000/uL (130-400); RED BLOOD CELL COUNT 4.39 mill/uL (4.2-5.4)
[2019-10-31 13:07] LABS: PLATELET ESTIMATE NORMAL
[2019-10-31] MEDS ORDERED: SODIUM CHLORIDE 0.9% 1000ML BAG (SEPSIS BOLUS) IV ONE (13:30)
[2019-10-31] MEDS ORDERED: CLONIDINE 0.1MG TABLET PO PRN (13:45)
[2019-10-31] MEDS ORDERED: PIPERACILLIN/TAZ 3.375G PREMIX 50 ML IV SCH ×2 (13:45→16:31)
[2019-10-31] MEDS ORDERED: ONDANSETRON HCL 4MG/2ML INJ IV PRN ×2 (13:45→14:30)
[2019-10-31 14:10] LABS: CLARITY URINE CLOUDY (CLEAR); COLOR URINE YELLOW (YELLOW); KETONES URINE TRACE (NEGATIVE); LEUKOCYTE ESTERASE URINE 1+ (NEGATIVE); NITRITE URINE NEGATIVE (NEGATIVE); OCCULT BLOOD URINE 2+ (NEGATIVE); PROTEIN URINE 4+ (NEGATIVE); SPECIFIC GRAVITY URINE 1.018 (1.005-1.030); UROBILINOGEN URINE 0.2 E.U./dL (0.2-1.0)
[2019-10-31] MEDS ORDERED: HYDRALAZINE 20MG/ML VIAL IV PRN (14:30)
[2019-10-31] MEDS ORDERED: ACETAMINOPHEN 650MG SUPP PR PRN (14:30)
[2019-10-31 15:16] LABS: CHLORIDE 95 mEq/L (98-107)
[2019-10-31] MEDS: AMLODIPINE 10MG TABLET PO SCH (16:55)
[2019-10-31] MEDS: LISINOPRIL 20MG TABLET PO SCH (16:55)
[2019-10-31] MEDS ORDERED: DEXTROSE 50% WATER 50ML SYRINGE IV PRN (17:00)
[2019-10-31 18:00] VITALS: BP 208/96
[2019-10-31 18:15] VITALS: BP 208/96
[2019-10-31] MEDS ORDERED: CLON0.3T MT (18:30)
[2019-10-31] MEDS ORDERED: INSU100V37 SQ (18:30)
[2019-10-31] MEDS: BLOOD SUGAR DIAGNOSTIC STRIP TEST SCH ×2 (18:30→21:20)
[2019-10-31] MEDS ORDERED: INSU100I28 SQ (18:30)
[2019-10-31] MEDS: INSULIN LISPRO (HIGH DOSE) 100 UNITS/ML SUBCUT SCH ×2 (18:40→21:21)
[2019-10-31 20:00] VITALS: BP 201/94
[2019-10-31] MEDS ORDERED: VANCOMYCIN 1 G PREMIX 200 ML IV SCH (20:00)
[2019-10-31] MEDS: DOCUSATE SODIUM 250MG CAPSULE PO SCH ×2 (21:00→21:20)
[2019-10-31 22:00] VITALS: BP 182/89
[2019-10-31] MEDS ORDERED: PIPERACILLIN/TAZOBACTAM 2.25 G in DEXTROSE 5% WATER 50 ML IV SCH (22:00)
[2019-10-31] MEDS: CLONIDINE 0.3MG TABLET PO SCH (22:36)
[2019-11-01] VITALS (13 sets, daily range): BP systolic 97–191; BP diastolic 64–84
[2019-11-01] MEDS: PIPERACILLIN/TAZOBACTAM 2.25 G in DEXTROSE 5% WATER 50 ML IV SCH ×3 (02:27→19:06)
[2019-11-01] MEDS: CLONIDINE 0.3MG TABLET PO SCH ×3 (06:20→22:00)
[2019-11-01 06:28] LABS: CHLORIDE 102 mEq/L (98-107)
[2019-11-01] MEDS: BLOOD SUGAR DIAGNOSTIC STRIP TEST SCH ×4 (07:20→21:00)
[2019-11-01] MEDS: DOCUSATE SODIUM 250MG CAPSULE PO SCH (08:13)
[2019-11-01] MEDS: INSULIN LISPRO (HIGH DOSE) 100 UNITS/ML SUBCUT SCH ×4 (08:22→22:30)
[2019-11-01] MEDS: LISINOPRIL 20MG TABLET PO SCH ×3 (09:00→18:20)
[2019-11-01] MEDS: AMLODIPINE 10MG TABLET PO SCH ×3 (09:00→18:20)
[2019-11-01 10:15] LABS: HEMATOCRIT. 40.2 % (36.0-48.0); HEMOGLOBIN. 12.8 g/dL (12.0-16.0); MEAN CORPUSCULAR HEMOGLOBIN 29.3 pg (28.0-32.0); MEAN CORPUSCULAR VOLUME 92.1 fL (81.0-99.0); MEAN PLATELET VOLUME 8.7 fl (7.4-10.4); PLATELET 283 x1000/uL (130-400); RED BLOOD CELL COUNT 4.36 mill/uL (4.2-5.4); RED CELL DISTRIBUTION WIDTH 19.4 % (11.6-14.6)
[2019-11-01 13:53] LABS: NUCLEATED RED BLOOD CELLS 1 /100 WBC
[2019-11-01 13:54] LABS: PLATELET ESTIMATE NORMAL
[2019-11-01] MEDS: FLUCONAZOLE 200 MG/100ML BAG 100 ML IV SCH (15:19)
[2019-11-01] MEDS: DOCUSATE SODIUM SUGAR FREE 100MG/10ML UDC NG SCH (18:15)
[2019-11-02] VITALS (16 sets, daily range): BP systolic 99–152; BP diastolic 54–74
[2019-11-02] MEDS: CLONIDINE 0.3MG TABLET PO SCH ×3 (05:25→21:25)
[2019-11-02] MEDS: PIPERACILLIN/TAZOBACTAM 2.25 G in DEXTROSE 5% WATER 50 ML IV SCH ×3 (05:25→17:44)
[2019-11-02] MEDS: BLOOD SUGAR DIAGNOSTIC STRIP TEST SCH ×4 (07:30→21:00)
[2019-11-02] MEDS: AMLODIPINE 10MG TABLET PO SCH (08:35)
[2019-11-02] MEDS: LISINOPRIL 20MG TABLET PO SCH (08:35)
[2019-11-02] MEDS: DOCUSATE SODIUM SUGAR FREE 100MG/10ML UDC NG SCH ×2 (08:35→17:49)
[2019-11-02] MEDS: INSULIN LISPRO (HIGH DOSE) 100 UNITS/ML SUBCUT SCH ×4 (08:38→21:26)
[2019-11-02] MEDS: FLUCONAZOLE 200 MG/100ML BAG 100 ML IV SCH (12:12)
[2019-11-02 12:40] LABS: BASOPHILS % 0.2 % (0.0-2.0); EOSINOPHILS % 0.1 % (0.0-5.0); HEMATOCRIT. 34.4 % (36.0-48.0); LYMPHOCYTES % 13.3 % (20.0-50.0); MEAN CORPUSCULAR HEMOGLOBIN 29.5 pg (28.0-32.0); MEAN CORPUSCULAR VOLUME 92.2 fL (81.0-99.0); MEAN PLATELET VOLUME 8.4 fl (7.4-10.4); MONOCYTES % 6.6 % (2.0-8.0); NEUTROPHILS % 79.8 % (40.0-76.0); PLATELET 258 x1000/uL (130-400); RED BLOOD CELL COUNT 3.73 mill/uL (4.2-5.4)
[2019-11-03] VITALS (12 sets, daily range): BP systolic 95–130; BP diastolic 51–68
[2019-11-03] MEDS: ACETAMINOPHEN 325MG TABLET PO PRN ×2 (00:36→19:24)
[2019-11-03] MEDS: PIPERACILLIN/TAZOBACTAM 2.25 G in DEXTROSE 5% WATER 50 ML IV SCH ×2 (02:06→10:46)
[2019-11-03] MEDS: CLONIDINE 0.3MG TABLET PO SCH ×3 (05:29→22:00)
[2019-11-03 06:52] LABS: BASOPHILS % 0.1 % (0.0-2.0); EOSINOPHILS % 0.3 % (0.0-5.0); HEMATOCRIT. 32.1 % (36.0-48.0); HEMOGLOBIN. 10.2 g/dL (12.0-16.0); LYMPHOCYTES % 19.4 % (20.0-50.0); MEAN CORPUSCULAR HEMOGLOBIN 29.9 pg (28.0-32.0); MEAN PLATELET VOLUME 8.7 fl (7.4-10.4); NEUTROPHILS % 72.2 % (40.0-76.0); PLATELET 247 x1000/uL (130-400); RED BLOOD CELL COUNT 3.42 mill/uL (4.2-5.4); RED CELL DISTRIBUTION WIDTH 19.1 % (11.6-14.6)
[2019-11-03] MEDS: BLOOD SUGAR DIAGNOSTIC STRIP TEST SCH ×4 (07:30→21:00)
[2019-11-03] MEDS: AMLODIPINE 10MG TABLET PO SCH (09:00)
[2019-11-03] MEDS: LISINOPRIL 20MG TABLET PO SCH (09:00)
[2019-11-03] MEDS: INSULIN LISPRO (HIGH DOSE) 100 UNITS/ML SUBCUT SCH ×4 (09:29→21:00)
[2019-11-03] MEDS: DOCUSATE SODIUM SUGAR FREE 100MG/10ML UDC NG SCH ×2 (10:46→17:54)
[2019-11-03] MEDS: FLUCONAZOLE 200 MG/100ML BAG 100 ML IV SCH (12:43)
[2019-11-03] MEDS ORDERED: VANCOMYCIN 750 MG PREMIX 150 ML IV SCH (16:00)
[2019-11-03] MEDS: LINEZOLID 600MG TABLET PO SCH (22:16)
[2019-11-04] VITALS (13 sets, daily range): BP systolic 110–180; BP diastolic 52–80
[2019-11-04] MEDS: CLONIDINE 0.3MG TABLET PO SCH ×3 (05:28→21:59)
[2019-11-04] MEDS: BLOOD SUGAR DIAGNOSTIC STRIP TEST SCH ×4 (05:46→21:00)
[2019-11-04] MEDS: INSULIN LISPRO (HIGH DOSE) 100 UNITS/ML SUBCUT SCH ×4 (05:46→22:01)
[2019-11-04 07:08] LABS: BASOPHILS % 0.2 % (0.0-2.0); EOSINOPHILS % 0.4 % (0.0-5.0); HEMATOCRIT. 31.3 % (36.0-48.0); HEMOGLOBIN. 9.7 g/dL (12.0-16.0); LYMPHOCYTES % 14.5 % (20.0-50.0); MEAN CORPUSCULAR VOLUME 93.4 fL (81.0-99.0); MEAN PLATELET VOLUME 8.4 fl (7.4-10.4); MONOCYTES % 4.4 % (2.0-8.0); NEUTROPHILS % 80.5 % (40.0-76.0); PLATELET 219 x1000/uL (130-400); RED BLOOD CELL COUNT 3.36 mill/uL (4.2-5.4); RED CELL DISTRIBUTION WIDTH 18.8 % (11.6-14.6)
[2019-11-04] MEDS ORDERED: POTASSIUM CHLORIDE 20MEQ/PACKET PO NR (09:30)
[2019-11-04] MEDS: LISINOPRIL 20MG TABLET PO SCH (09:52)
[2019-11-04] MEDS: LINEZOLID 600MG TABLET PO SCH ×2 (09:52→21:59)
[2019-11-04] MEDS: AMLODIPINE 10MG TABLET PO SCH (09:52)
[2019-11-04] MEDS: FLUCONAZOLE 200 MG/100ML BAG 100 ML IV SCH (12:10)
[2019-11-04] MEDS: DOCUSATE SODIUM SUGAR FREE 100MG/10ML UDC NG SCH ×2 (12:11→18:06)
[2019-11-05] VITALS (12 sets, daily range): BP systolic 108–164; BP diastolic 56–78
[2019-11-05] MEDS: CLONIDINE 0.3MG TABLET PO SCH ×3 (06:08→22:11)
[2019-11-05 06:50] LABS: BASOPHILS % 0.5 % (0.0-2.0); EOSINOPHILS % 1.9 % (0.0-5.0); HEMATOCRIT. 29.9 % (36.0-48.0); HEMOGLOBIN. 9.5 g/dL (12.0-16.0); MEAN CORPUSCULAR HEMOGLOBIN 29.9 pg (28.0-32.0); MEAN CORPUSCULAR VOLUME 93.7 fL (81.0-99.0); MONOCYTES % 6.4 % (2.0-8.0); NEUTROPHILS % 68.2 % (40.0-76.0); RED BLOOD CELL COUNT 3.19 mill/uL (4.2-5.4); RED CELL DISTRIBUTION WIDTH 18.9 % (11.6-14.6)
[2019-11-05] MEDS: BLOOD SUGAR DIAGNOSTIC STRIP TEST SCH ×4 (07:30→21:00)
[2019-11-05 08:51] LABS: PLATELET 231 x1000/uL (130-400)
[2019-11-05] MEDS: AMLODIPINE 10MG TABLET PO SCH (09:41)
[2019-11-05] MEDS: DOCUSATE SODIUM SUGAR FREE 100MG/10ML UDC NG SCH ×2 (09:46→17:00)
[2019-11-05] MEDS: INSULIN LISPRO (HIGH DOSE) 100 UNITS/ML SUBCUT SCH ×4 (09:48→22:13)
[2019-11-05] MEDS: LINEZOLID 600MG TABLET PO SCH ×2 (09:49→22:11)
[2019-11-05] MEDS: LISINOPRIL 20MG TABLET PO SCH (09:49)
[2019-11-05] MEDS: LACTULOSE 20G/30ML UDC PO SCH ×3 (09:51→22:12)
[2019-11-05] MEDS ORDERED: BISACODYL 10MG SUPP PR NR (11:00)
[2019-11-05] MEDS: FLUCONAZOLE 200 MG/100ML BAG 100 ML IV SCH (13:35)
[2019-11-06] VITALS (12 sets, daily range): BP systolic 120–172; BP diastolic 58–78
[2019-11-06] MEDS: LACTULOSE 20G/30ML UDC PO SCH ×3 (05:01→21:51)
[2019-11-06] MEDS: CLONIDINE 0.3MG TABLET PO SCH ×3 (05:01→21:53)
[2019-11-06 07:08] LABS: BASOPHILS % 0.1 % (0.0-2.0); HEMATOCRIT. 33.9 % (36.0-48.0); HEMOGLOBIN. 10.5 g/dL (12.0-16.0); LYMPHOCYTES % 24.8 % (20.0-50.0); MEAN CORPUSCULAR HEMOGLOBIN 29.3 pg (28.0-32.0); MEAN PLATELET VOLUME 9.3 fl (7.4-10.4); MONOCYTES % 7.9 % (2.0-8.0); NEUTROPHILS % 66.2 % (40.0-76.0); PLATELET 243 x1000/uL (130-400); RED BLOOD CELL COUNT 3.57 mill/uL (4.2-5.4); RED CELL DISTRIBUTION WIDTH 19.3 % (11.6-14.6)
[2019-11-06] MEDS: BLOOD SUGAR DIAGNOSTIC STRIP TEST SCH ×4 (07:30→21:51)
[2019-11-06] MEDS: LISINOPRIL 20MG TABLET PO SCH (09:42)
[2019-11-06] MEDS: LINEZOLID 600MG TABLET PO SCH ×2 (09:42→21:51)
[2019-11-06] MEDS: DOCUSATE SODIUM SUGAR FREE 100MG/10ML UDC NG SCH ×2 (09:42→17:00)
[2019-11-06] MEDS: AMLODIPINE 10MG TABLET PO SCH (09:43)
[2019-11-06] MEDS: INSULIN LISPRO (HIGH DOSE) 100 UNITS/ML SUBCUT SCH ×4 (09:46→21:54)
[2019-11-06] MEDS: FLUCONAZOLE 200 MG/100ML BAG 100 ML IV SCH (12:58)
[2019-11-07] VITALS (12 sets, daily range): BP systolic 129–166; BP diastolic 59–77
[2019-11-07] MEDS: LACTULOSE 20G/30ML UDC PO SCH ×3 (05:34→21:14)
[2019-11-07] MEDS: CLONIDINE 0.3MG TABLET PO SCH ×3 (05:40→21:13)
[2019-11-07] MEDS: BLOOD SUGAR DIAGNOSTIC STRIP TEST SCH ×4 (07:37→21:13)
[2019-11-07] MEDS: AMLODIPINE 10MG TABLET PO SCH (08:06)
[2019-11-07] MEDS: DOCUSATE SODIUM SUGAR FREE 100MG/10ML UDC NG SCH ×2 (08:06→17:00)
[2019-11-07] MEDS: LISINOPRIL 20MG TABLET PO SCH (08:06)
[2019-11-07] MEDS: LINEZOLID 600MG TABLET PO SCH ×2 (08:50→21:14)
[2019-11-07] MEDS: INSULIN LISPRO (HIGH DOSE) 100 UNITS/ML SUBCUT SCH ×4 (08:51→21:14)
[2019-11-07 13:12] LABS: BASOPHILS % 0.3 % (0.0-2.0); EOSINOPHILS % 1.7 % (0.0-5.0); HEMATOCRIT. 29.4 % (36.0-48.0); HEMOGLOBIN. 9.5 g/dL (12.0-16.0); LYMPHOCYTES % 21.8 % (20.0-50.0); MEAN CORPUSCULAR HEMOGLOBIN 30.1 pg (28.0-32.0); MEAN CORPUSCULAR VOLUME 93.8 fL (81.0-99.0); MEAN PLATELET VOLUME 9.1 fl (7.4-10.4); NEUTROPHILS % 67.2 % (40.0-76.0); PLATELET 265 x1000/uL (130-400); RED BLOOD CELL COUNT 3.14 mill/uL (4.2-5.4); RED CELL DISTRIBUTION WIDTH 19.3 % (11.6-14.6)
[2019-11-08] VITALS (7 sets, daily range): BP systolic 126–159; BP diastolic 66–79
[2019-11-08] MEDS: LACTULOSE 20G/30ML UDC PO SCH (06:00)
[2019-11-08] MEDS: CLONIDINE 0.3MG TABLET PO SCH (06:23)
[2019-11-08 07:12] LABS: BASOPHILS % 0.3 % (0.0-2.0); EOSINOPHILS % 0.7 % (0.0-5.0); HEMATOCRIT. 31.9 % (36.0-48.0); HEMOGLOBIN. 10.2 g/dL (12.0-16.0); LYMPHOCYTES % 13.1 % (20.0-50.0); MEAN CORPUSCULAR HEMOGLOBIN 29.8 pg (28.0-32.0); MEAN CORPUSCULAR VOLUME 93.3 fL (81.0-99.0); MEAN PLATELET VOLUME 8.9 fl (7.4-10.4); MONOCYTES % 5.6 % (2.0-8.0); NEUTROPHILS % 80.3 % (40.0-76.0); PLATELET 282 x1000/uL (130-400); RED BLOOD CELL COUNT 3.42 mill/uL (4.2-5.4); RED CELL DISTRIBUTION WIDTH 19.1 % (11.6-14.6)
[2019-11-08] MEDS: BLOOD SUGAR DIAGNOSTIC STRIP TEST SCH (07:39)
[2019-11-08] MEDS: LINEZOLID 600MG TABLET PO SCH (08:23)
[2019-11-08] MEDS: DOCUSATE SODIUM SUGAR FREE 100MG/10ML UDC NG SCH (08:23)
[2019-11-08] MEDS: INSULIN LISPRO (HIGH DOSE) 100 UNITS/ML SUBCUT SCH (08:23)
[2019-11-08] MEDS: LISINOPRIL 20MG TABLET PO SCH (09:00)
[2019-11-08] MEDS: AMLODIPINE 10MG TABLET PO SCH (09:06)
== END 2019-11-08 10:35 | DRG 871 ==
LOC: ER 11:03 → 5EST 14:30 → EDBEDREQTM 14:32 → EDBEDREQ 14:32 → ENRESERV 16:38
PROVIDERS: ADMIT Hospitalist; ATTEND Hospitalist
PROC: 5A1D70Z Performance of Urinary Filtration, Intermittent, Less than 6 Hours Per Day (ICD-10-PCS; 2019-10-31)
PROC: 5A1D70Z Performance of Urinary Filtration, Intermittent, Less than 6 Hours Per Day (ICD-10-PCS; principal; 2019-11-01)
PROC: 5A1D70Z Performance of Urinary Filtration, Intermittent, Less than 6 Hours Per Day (ICD-10-PCS; 2019-11-03)
PROC: 5A1D70Z Performance of Urinary Filtration, Intermittent, Less than 6 Hours Per Day (ICD-10-PCS; 2019-11-05)
PROC: 5A1D70Z Performance of Urinary Filtration, Intermittent, Less than 6 Hours Per Day (ICD-10-PCS; 2019-11-07)
DX: B37.7 Candidal sepsis (principal); N18.6 End stage renal disease; E46 Unspecified protein-calorie malnutrition; I13.2 Hypertensive heart and chronic kidney disease with heart failure and with stage 5 chronic kidney disease, or end stage renal disease; K92.2 Gastrointestinal hemorrhage, unspecified; N17.9 Acute kidney failure, unspecified; Z16.21 Resistance to vancomycin; J91.8 Pleural effusion in other conditions classified elsewhere; I69.354 Hemiplegia and hemiparesis following cerebral infarction affecting left non-dominant side; B37.49 Other urogenital candidiasis; D63.1 Anemia in chronic kidney disease; E11.22 Type 2 diabetes mellitus with diabetic chronic kidney disease; G40.909 Epilepsy, unspecified, not intractable, without status epilepticus; H54.8 Legal blindness, as defined in USA; I50.9 Heart failure, unspecified; K56.41 Fecal impaction; N28.1 Cyst of kidney, acquired; B95.2 Enterococcus as the cause of diseases classified elsewhere; B96.5 Pseudomonas (aeruginosa) (mallei) (pseudomallei) as the cause of diseases classified elsewhere; K64.9 Unspecified hemorrhoids; E78.00 Pure hypercholesterolemia, unspecified; K21.9 Gastro-esophageal reflux disease without esophagitis; Z99.2 Dependence on renal dialysis; Z74.01 Bed confinement status; Z68.23 Body mass index [BMI] 23.0-23.9, adult
CPT/HCPCS: 36415; 74018; 74176; 80048; 80053; 80202; 81003; 82270; 82962; 83036; 83605; 84145; 84443; 84484; 85025; 87077; 87186; 92610; 93005; 93970; 99291; J0360; J1450; J1815; J2405; J2543; J3370; J7030; J7060